=== PATIENT | male | born 1970 | race Caucasian/White ===

== ENCOUNTER 2023-05-15 05:50 | Observation (INO) | payer BC, OTHER ==
[2023-05-15] MEDS ORDERED: Zofran 4 MG/2 ML VIAL IV ONE ×2 (06:09→08:14)
[2023-05-15] MEDS ORDERED: Sodium Chloride 0.9% 1000 ML 1,000 ML IV STA ×2 (06:09→08:14)
[2023-05-15] MEDS ORDERED: MORPHINE SULFATE 4 MG INJ IV ONE (06:09)
--- NOTE | 2023-05-15 06:19 | ERPHSYRPT ---
<MART OMER - Last Filed: 05/15/23 08:06> - History of Present Illness Historian: patient Exam Limitations: no limitations Patient Subjective Stated Complaint: pt states he has been having abd pain and vomiting since tuesday, has been getting worse. Triage Nursing Assessment: pt alert and oriented, answers questions approp. pt ambulates into room with steady gait noted and splinting abd. skin warm and dry. respirations nonlabored. abd soft, pt reports diffuseabd tenderness with light palpation. bowel sounds hypo x4 quads. Hx Tetanus, Diphtheria Vaccination/Date Given: No Hx Influenza Vaccination/Date Given: No Hx Pneumococcal Vaccination/Date Given: No Immunizations Up to Date: No <SONIA JEONG - Last Filed: 05/15/23 19:42> - History of Present Illness Time Seen by Provider: 05/15/23 06:09 Physician History: 53 years old male presented in the ER with chief complaint of generalized abdominal pain with multiple episodes of nonprojectile, nonbilious vomiting without hematemesis for the last 3 days with progressive worsening. Patient reports moderate to severe intensity sharp pain, aggravated with palpation movements and oral intake. Patient reports unable to hold anything down. Denies any diarrhea or constipation. No fever or chills reported. No history of previous abdominal surgeries. (SONIA JEONG) Allergies/Adverse Reactions: No Known Drug Allergies Allergy (Verified 05/15/23 06:15) Home Medications: Multivitamin [Multi-Vitamin Daily] 1 tab PO DAILY 05/15/23 [History] Oxycodone HCl/Acetaminophen [Oxycodone-Acetaminophn 7.5-325] 1 each PO Q6H PRN PRN 05/15/23 [History] Travel Risk - International Travel Have you traveled outside of the country in past 3 weeks: No - Coronavirus Screening Are you exhibiting any of the following symptoms?: No Close contact with a COVID-19 positive Pt in past 14-21 Days: No - Vaccine Status Have you recieved a Covid-19 vaccination: No <SONIA JEONG - Last Filed: 05/15/23 19:42> - Review of Systems Constitutional: Fatigue, Weakness Eyes: No Symptoms Ears, Nose, & Throat: No Symptoms Respiratory: No Symptoms Cardiac: No Symptoms Abdominal/Gastrointestinal: Abdominal Pain, Nausea, Vomiting Genitourinary Symptoms: No Symptoms Musculoskeletal: No Symptoms Neurological: No Symptoms Psychological: No Symptoms Endocrine: No Symptoms Hematologic/Lymphatic: No Symptoms Immunological/Allergic: No Symptoms <JOYCE JEONGMIR - Last Filed: 05/15/23 19:42> - Past Medical History Pertinent Past Medical History: No Neurological History: No Pertinent History Cardiac History: No Pertinent History Respiratory History: No Pertinent History Endocrine Medical History: No Pertinent History Musculoskeletal History: Arthritis - Past Surgical History Past Surgical History: Yes Other Surgical History: knee surgery - Social History Smoking Status: Never smoker Exposure to second hand smoke: Yes Drug Use: none Patient Lives Alone: No <JEAN-PAULSONIA - Last Filed: 05/15/23 19:42> - Physical Exam General Appearance: no apparent distress, alert Eye Exam: PERRL/EOMI Ears, Nose, Throat Exam: normal ENT inspection Neck Exam: normal inspection, supple, full range of motion Respiratory Exam: normal breath sounds, lungs clear Cardiovascular Exam: regular rate/rhythm, normal heart sounds Gastrointestinal/Abdomen Exam: soft, tenderness (Generalized tenderness with mild guarding without rebound tenderness), No normal bowel sounds (Hypoactive) Extremity Exam: normal inspection, normal range of motion Neurologic Exam: alert, oriented x 3, cooperative, conservation educator II-XII nml as tested Skin Exam: normal color SpO2 Interpretation: normal SpO2: 100 O2 Delivery: Room Air <JEAN-PAULSONIA - Last Filed: 05/15/23 19:42> - Nursing Vital Signs Nursing Vital Signs: Initial Vital Signs Temperature 98.3 F 05/15/23 06:02 Pulse Rate 52 L 05/15/23 06:02 Respiratory Rate 18 05/15/23 06:02 Blood Pressure 130/74 05/15/23 06:02 O2 Sat by Pulse Oximetry 100 05/15/23 06:02 Pain Scale Pain Intensity 9 - Course Nursing assessment & vital signs reviewed: Yes - CT Exams Abdomen/Pelvis CT Interpretation: Tele-radiologist Report, Other (Reviewed by me) <MART OMER - Last Filed: 05/15/23 08:06> Ordered Tests: Active Orders 24 hr Category Date Time Status IV Insertion STAT Care 05/15/23 06:09 Completed NPO (ED) STAT Care 05/15/23 06:09 Completed NPO Diet 05/15/23 08:15 Active ABDOMEN AND PELVIS W CONTRAST [CT] Stat Exams 05/15/23 06:15 Completed CBC W DIFF Stat Lab 05/15/23 06:30 Results CMP Stat Lab 05/15/23 06:30 Completed CULTURE,URINE Stat Lab 05/15/23 08:17 Received LIPASE Stat Lab 05/15/23 06:30 Completed LIPID PROFILE Stat Lab 05/15/23 06:16 Completed Lactic Acid Stat Lab 05/15/23 06:30 Completed MAG [MAGNESIUM] Stat Lab 05/15/23 06:30 Completed Manual Differential NC Stat Lab 05/15/23 06:30 Results Pathologist Review Stat Lab 05/15/23 06:30 Results UA W/RFX UR CULTURE Stat Lab 05/15/23 08:17 Completed Transfer Order Routine Transfer 05/15/23 Completed Medication Summary Generic Name Dose Route Start Last Admin Trade Name Freq PRN Reason Stop Dose Admin Hydromorphone/Sodium Chloride 30 mg 05/15/23 16:05 05/15/23 16:23 Hydromorphone/Nacl/Pf 30 Mg/30 Ml Cast Shell Grinder.Syring IV 06/14/23 16:04 30 mg .STANDARD PIPELINE DISPATCHER DOSING PRN Administration PAIN Lactated Ringer's 1,000 mls @ 125 mls/hr 05/15/23 09:00 05/15/23 17:01 Lactated Ringers IV 06/14/23 08:59 125 mls/hr .Q8H JAXON Administration Ondansetron HCl 4 mg 05/15/23 09:58 05/15/23 14:15 Ondansetron Hcl 4 Mg/2 Ml Vial IV 06/14/23 09:57 4 mg Q6H PRN PRN Administration NAUSEA/VOMITING Pantoprazole Sodium 40 mg 05/15/23 10:00 05/15/23 10:29 Pantoprazole 40 Mg Vial IV 06/14/23 09:59 40 mg Q24H10 JAXON Administration Discontinued Medications Generic Name Dose Route Start Last Admin Trade Name Freq PRN Reason Stop Dose Admin Hydromorphone HCl Confirm 05/15/23 08:20 Hydromorphone 1 Mg/1ml Inj Administered 05/15/23 08:21 Dose 1 mg .ROUTE .STK-MED ONE Hydromorphone HCl 1 mg 05/15/23 08:23 05/15/23 08:25 Hydromorphone 1 Mg/1ml Inj IV 05/15/23 08:24 1 mg STAT ONE Administration Hydromorphone HCl 1 mg 05/15/23 08:38 Hydromorphone 1 Mg/1ml Inj IV 05/20/23 08:37 Q4H PRN PRN PAIN Hydromorphone HCl 1 mg 05/15/23 09:57 05/15/23 12:28 Hydromorphone 1 Mg/1ml Inj IV 05/20/23 09:56 1 mg Q4H PRN PRN Administration PAIN Sodium Chloride 1,000 mls @ 999 mls/hr 05/15/23 06:09 05/15/23 07:55 Sodium Chloride 0.9% 1000 Ml IV 05/15/23 07:09 Infused .Q1H1M STA Infusion Sodium Chloride Confirm 05/15/23 06:23 Sodium Chloride 0.9% 1000 Ml Administered 05/15/23 06:24 Dose 1,000 mls @ ud .ROUTE .STK-MED ONE Sodium Chloride Confirm 05/15/23 07:57 Sodium Chloride 0.9% 1000 Ml Administered 05/15/23 07:58 Dose 1,000 mls @ ud .ROUTE .STK-MED ONE Sodium Chloride 1,000 mls @ 999 mls/hr 05/15/23 08:14 05/15/23 08:15 Sodium Chloride 0.9% 1000 Ml IV 05/15/23 09:14 999 mls/hr .Q1H1M STA Administration Lactated Ringer's 1,000 mls @ 125 mls/hr 05/15/23 09:00 Lactated Ringers IV 06/14/23 08:59 .Q8H JAXON Morphine Sulfate 4 mg 05/15/23 06:09 05/15/23 06:26 Morphine Sulfate 4 Mg/Ml Injection IV 05/15/23 06:10 4 mg STAT ONE Administration Morphine Sulfate Confirm 05/15/23 06:23 Morphine Sulfate 4 Mg/Ml Injection Administered 05/15/23 06:24 Dose 4 mg .ROUTE .STK-MED ONE Ondansetron HCl 4 mg 05/15/23 06:09 05/15/23 06:27 Ondansetron Hcl 4 Mg/2 Ml Vial IV 05/15/23 06:10 4 mg STAT ONE Administration Ondansetron HCl Confirm 05/15/23 06:22 Ondansetron Hcl 4 Mg/2 Ml Vial Administered 05/15/23 06:23 Dose 4 mg .ROUTE .STK-MED ONE Ondansetron HCl Confirm 05/15/23 08:03 Ondansetron Hcl 4 Mg/2 Ml Vial Administered 05/15/23 08:04 Dose 4 mg .ROUTE .STK-MED ONE Ondansetron HCl 4 mg 05/15/23 08:14 05/15/23 08:15 Ondansetron Hcl 4 Mg/2 Ml Vial IV 05/15/23 08:15 4 mg STAT ONE Administration Pantoprazole Sodium 40 mg 05/15/23 08:45 05/15/23 08:57 Pantoprazole 40 Mg Vial IV 06/14/23 08:44 Not Given Q24H [facility] Lab/Rad Data: Laboratory Result Diagrams 05/15/23 06:30 05/15/23 06:30 Laboratory Results 05/15/23 05/15/23 05/15/23 Range/Units 08:17 06:30 06:30 WBC (4.0-10.5) x10^3/uL RBC (4.1-5.6) x10^6/uL Hgb (12.5-18.0) g/dL Hct (42-50) % MCV (78-100) fL MCH (26-32) pg MCHC (32-36) g/dL RDW (11.5-14.0) % Plt Count (150-450) x10^3/uL MPV (7.5-11.0) fL Segmented Neutrophils (36.-66.) % Band Neutrophils (0.0-2.0) % Lymphocytes (Manual) (24-44) % Monocytes (Manual) (0.0-12.0) % Toxic Granulation Platelet Estimate (NORMAL) RBC Morphology Smear Path Review Sodium (137-145) mmol/L Potassium (3.5-5.1) mmol/L Chloride (98-107) mmol/L Carbon Dioxide (22-30) mmol/L Anion Gap (5-15) MEQ/L BUN (9-20) mg/dL Creatinine (0.66-1.25) mg/dL Estimated GFR ML/MIN Glucose (74-106) mg/dL Hemoglobin A1c (4.5-6.0) % Lactic Acid 1.9 (0.4-2.0) Calcium (8.4-10.2) mg/dL Magnesium 2.0 (1.6-2.3) mg/dL Total Bilirubin (0.2-1.3) mg/dL AST (17-59) U/L ALT (0-50) U/L Alkaline Phosphatase (38-126) U/L Serum Total Protein (6.3-8.2) g/dL Albumin (3.5-5.0) g/dL Triglycerides (30-150) mg/dL Cholesterol (50-200) mg/dL LDL Cholesterol (30-100) mg/dL HDL Cholesterol (40-60) mg/dL Heart Disease Risk Ratio Lipase (23-300) U/L Urine Color Yellow (Yellow) Urine Appearance Clear (Clear) Urine pH 6.5 (4.6-8.0) Ur Specific Hinckley >=1.030 A (1.005-1.030) Urine Protein 30 (Negative) Urine Glucose (UA) Negative (Negative) mg/dL Urine Ketones 15 A (Negative) Urine Blood Large A (Negative) Urine Nitrite Negative (Negative) Urine Bilirubin Negative (Negative) Urine Urobilinogen 1.0 A (0.2) mg/dL Ur Leukocyte Esterase Negative (Negative) U Hyaline Cast (Auto) NONE SEEN (0-2) /LPF Urine Microscopic RBC 51-100 A (0-5) /HPF Urine Microscopic WBC 0-2 (0-5) /HPF Ur Epithelial Cells None Seen (None Seen) /HPF Urine Bacteria None Seen (None Seen) /HPF Urine Culture Reflexed YES (NO) 05/15/23 05/15/23 05/15/23 Range/Units 06:30 06:30 06:16 WBC 26.0 H* (4.0-10.5) x10^3/uL RBC 4.49 (4.1-5.6) x10^6/uL Hgb 14.6 (12.5-18.0) g/dL Hct 40.8 L (42-50) % MCV 90.9 (78-100) fL MCH 32.5 H (26-32) pg MCHC 35.8 (32-36) g/dL RDW 13.1 (11.5-14.0) % Plt Count 291 (150-450) x10^3/uL MPV 9.8 (7.5-11.0) fL Segmented Neutrophils 89 H (36.-66.) % Band Neutrophils 2 (0.0-2.0) % Lymphocytes (Manual) 7 L (24-44) % Monocytes (Manual) 2 (0.0-12.0) % Toxic Granulation 2+ Platelet Estimate NORMAL (NORMAL) RBC Morphology NORMAL Smear Path Review Pending Sodium 135 L (137-145) mmol/L Potassium 4.3 (3.5-5.1) mmol/L Chloride 99 (98-107) mmol/L Carbon Dioxide 26 (22-30) mmol/L Anion Gap 14.7 (5-15) MEQ/L BUN 22 H (9-20) mg/dL Creatinine 0.78 (0.66-1.25) mg/dL Estimated GFR > 60.0 ML/MIN Glucose 132 H (74-106) mg/dL Hemoglobin A1c 5.25 (4.5-6.0) % Lactic Acid (0.4-2.0) Calcium 9.7 (8.4-10.2) mg/dL Magnesium (1.6-2.3) mg/dL Total Bilirubin 1.00 (0.2-1.3) mg/dL AST 26 (17-59) U/L ALT 25 (0-50) U/L Alkaline Phosphatase 153 H (38-126) U/L Serum Total Protein 7.5 (6.3-8.2) g/dL Albumin 4.5 (3.5-5.0) g/dL Triglycerides (30-150) mg/dL Cholesterol (50-200) mg/dL LDL Cholesterol (30-100) mg/dL HDL Cholesterol (40-60) mg/dL Heart Disease Risk Ratio Lipase 534 H (23-300) U/L Urine Color (Yellow) Urine Appearance (Clear) Urine pH (4.6-8.0) Ur Specific Hinckley (1.005-1.030) Urine Protein (Negative) Urine Glucose (UA) (Negative) mg/dL Urine Ketones (Negative) Urine Blood (Negative) Urine Nitrite (Negative) Urine Bilirubin (Negative) Urine Urobilinogen (0.2) mg/dL Ur Leukocyte Esterase (Negative) U Hyaline Cast (Auto) (0-2) /LPF Urine Microscopic RBC (0-5) /HPF Urine Microscopic WBC (0-5) /HPF Ur Epithelial Cells (None Seen) /HPF Urine Bacteria (None Seen) /HPF Urine Culture Reflexed (NO) 05/15/23 Range/Units 06:16 WBC (4.0-10.5) x10^3/uL RBC (4.1-5.6) x10^6/uL Hgb (12.5-18.0) g/dL Hct (42-50) % MCV (78-100) fL MCH (26-32) pg MCHC (32-36) g/dL RDW (11.5-14.0) % Plt Count (150-450) x10^3/uL MPV (7.5-11.0) fL Segmented Neutrophils (36.-66.) % Band Neutrophils (0.0-2.0) % Lymphocytes (Manual) (24-44) % Monocytes (Manual) (0.0-12.0) % Toxic Granulation Platelet Estimate (NORMAL) RBC Morphology Smear Path Review Sodium (137-145) mmol/L Potassium (3.5-5.1) mmol/L Chloride (98-107) mmol/L Carbon Dioxide (22-30) mmol/L Anion Gap (5-15) MEQ/L BUN (9-20) mg/dL Creatinine (0.66-1.25) mg/dL Estimated GFR ML/MIN Glucose (74-106) mg/dL Hemoglobin A1c (4.5-6.0) % Lactic Acid (0.4-2.0) Calcium (8.4-10.2) mg/dL Magnesium (1.6-2.3) mg/dL Total Bilirubin (0.2-1.3) mg/dL AST (17-59) U/L ALT (0-50) U/L Alkaline Phosphatase (38-126) U/L Serum Total Protein (6.3-8.2) g/dL Albumin (3.5-5.0) g/dL Triglycerides 86 (30-150) mg/dL Cholesterol 210 H (50-200) mg/dL LDL Cholesterol 146 H (30-100) mg/dL HDL Cholesterol 44 (40-60) mg/dL Heart Disease Risk Ratio 4.8 Lipase (23-300) U/L Urine Color (Yellow) Urine Appearance (Clear) Urine pH (4.6-8.0) Ur Specific Hinckley (1.005-1.030) Urine Protein (Negative) Urine Glucose (UA) (Negative) mg/dL Urine Ketones (Negative) Urine Blood (Negative) Urine Nitrite (Negative) Urine Bilirubin (Negative) Urine Urobilinogen (0.2) mg/dL Ur Leukocyte Esterase (Negative) U Hyaline Cast (Auto) (0-2) /LPF Urine Microscopic RBC (0-5) /HPF Urine Microscopic WBC (0-5) /HPF Ur Epithelial Cells (None Seen) /HPF Urine Bacteria (None Seen) /HPF Urine Culture Reflexed (NO) - Progress Progress: unchanged Discussed with Dr.: Other (Dr Holder) Will see patient in: hospital (observation) <MART OMER - Last Filed: 05/15/23 08:06> - Progress Counseled pt/family regarding: diagnosis <SONIA JEONG - Last Filed: 05/15/23 19:42> - Progress Progress Note: 05/15/23 06:37 53 years old male presented in the ER with chief complaint of generalized abdominal pain with multiple episodes of nonprojectile, nonbilious vomiting without hematemesis for the last 3 days with progressive worsening. Patient reports moderate to severe intensity sharp pain, aggravated with palpation movements and oral intake. Patient reports unable to hold anything down. Denies any diarrhea or constipation. No fever or chills reported. No history of previous abdominal surgeries. On exam patient has generalized abdominal tenderness with mild guarding without rebound tenderness. Hypoactive bowel sounds. He is made n.p.o., fluids and will do acute abdomen work-up including CT abdomen pelvis with contrast. Work-up is pending, care is transferred to Dr. Omer at shift change for reevaluation and final disposition. (SONIA JEONG) Medical Desision Making - Discussion of managment Care discussed with:: hospitalist (Dr Holder) Reviewed:: Test results, Need for additional workup Agreed on:: Treatment plan, decision to admit Will see patient: in hospital - Diagnostic Testing Diagnostic test were ordered, analyzed, and reviewed by me: Yes Radiological Interpretation: Reviewed by me - Risk of complications The pt has a mod risk of morbidity or mortality based on: Need for prescription drug management (Patient will also receive an NG tube) <MART OMER - Last Filed: 05/15/23 08:06> - Departure Departure Disposition: Observation Critical Care Time: No <MART OMER - Last Filed: 05/15/23 08:06> <SONIA JEONG - Last Filed: 05/15/23 19:42> - Departure Clinical Impression: Pancreatitis Condition: Stable
[2023-05-15] MEDS ORDERED: Zofran 4 MG/2 ML VIAL ONE ×2 (06:22→08:03)
[2023-05-15] MEDS ORDERED: Sodium Chloride 0.9% 1000 ML 1,000 ML ONE ×2 (06:23→07:57)
[2023-05-15] MEDS ORDERED: MORPHINE SULFATE 4 MG INJ ONE (06:23)
[2023-05-15 06:52] LABS: ALBUMIN 4.5 g/dL (3.5-5.0); ALKALINE PHOSPHATASE 153 U/L (38-126); ANION GAP 14.7 MEQ/L (5-15); BLOOD UREA NITROGEN 22 mg/dL (9-20); CHLORIDE 99 mmol/L (98-107); Calcium 9.7 mg/dL (8.4-10.2); Carbon Dioxide 26 mmol/L (22-30); Creatinine 1 0.78 mg/dL (0.66-1.25); EST GLOMERULAR FILTRATION RATE > 60.0 ML/MIN; Glucose 132 mg/dL (74-106); LIPASE 534 U/L (23-300); Potassium 4.3 mmol/L (3.5-5.1); SGOT/AST 26 U/L (17-59); SGPT/ALT 25 U/L (0-50); SODIUM 135 mmol/L (137-145); Total Protein 7.5 g/dL (6.3-8.2)
[2023-05-15 06:53] LABS: Hematocrit 40.8 % (42-50); Hemoglobin 14.6 g/dL (12.5-18.0); Mean Cell Volume 90.9 fL (78-100); Mean Corpuscular Hemoglobin 32.5 pg (26-32); Mean Corpuscular Hgb Concent. 35.8 g/dL (32-36); Mean Platelet Volume 9.8 fL (7.5-11.0); Platelet Count 291 x10^3/uL (150-450); Red Blood Count 4.49 x10^6/uL (4.1-5.6); Red Cell Distribution Width 13.1 % (11.5-14.0)
[2023-05-15 07:17] LABS: BAND 2 % (0.0-2.0); Lymphocytes 7 % (24-44); Monocyte 2 % (0.0-12.0); Neutrophils 89 % (36.-66.); Platelet Estimate NORMAL (NORMAL); Total Cells Counted 100; Toxic Granulation 2+
--- NOTE | 2023-05-15 07:38 | XRAY ---
CLINICAL HISTORY:gen abd pain/vomiting COMPARISON:None. TECHNIQUE:CT scanning of the abdomen and pelvis was obtained after IV contrast administration. Coronal and sagittal reconstructions were also obtained. FINDINGS: The visualized liver is average in size showing regular outlines with no obvious focal mass lesion or dilated biliary radicle. The spleen is not enlarged, shows multiple tiny calcific foci with no obvious areas of abnormal osf tissue attenuation or perisplenic collection. Fat accumulation in the pancreatic parenchyma is seen, mainly involving the pancreatic head , sparing the uncinate process The opacified stomach and duodenal loop are regularly opacified with no obvious gross ulcerative changes, spasticity or mass lesion. The small and large bowel loops appear intact with no obvious abnormal mural thickening, stenotic segment, diverticular changes or mass lesion. There is no obvious peritoneal adhesive changes or nodulations. The retroperitoneal structures including the kidneys, adrenal glands, and great vessels are within normal limits. Few para aortic lymph nodes are seen showing preserved ovoid shape , largest one measures approximately 12x6mm along maximum and smallest calibers. No obvious ascitic collection. The examined pelvis revealed regular filling of the urinary bladder with no obvious mural thickening or diverticular changes. The visualized prostate, rectum, and sigmoid colon appear intact. (apart from a few prostatic concretions) The lower chest cuts revealed bilateral basal atelectatic bands Lumbar spondylodegenerative changes are incidentally seen IMPRESSION: 1. Uneven pancreatic lipomatosis/ fatty infiltration. 2. Multiple tiny splenic calcific foci, mostly old granulomas 3. Other findings as described. Electronically Signed by: Edward Grace MD. (05/15/2023 06:36:17 COTTRELL OPERATOR)
[2023-05-15] MEDS ORDERED: Hydromorphone 1 mg/ml Injection ONE (08:20)
[2023-05-15] MEDS ORDERED: Hydromorphone 1 mg/ml Injection IV ONE (08:23)
[2023-05-15] MEDS ORDERED: Hydromorphone 1 mg/ml Injection IV PRN ×2 (08:38→09:57)
[2023-05-15 08:44] LABS: Appearance Clear (Clear); Bacteria None Seen /HPF (None Seen); Bilirubin Negative (Negative); Blood Large (Negative); Epithelial Cells None Seen /HPF (None Seen); Glucose, Urine Negative (Negative); Hyaline Casts NONE SEEN /LPF (0-2); Ketones 15 (Negative); Leukocyte Esterase Negative (Negative); Nitrite Negative (Negative); Ph 6.5 (4.6-8.0); Protein,Urine Dip 30 (Negative); RBC 51-100 /HPF (0-5); Specific Gravity >=1.030 (1.005-1.030); WBC 0-2 /HPF (0-5)
[2023-05-15] MEDS ORDERED: PROTONIX 40 MG IV IV SCH (08:45)
[2023-05-15] MEDS ORDERED: Lactated Ringers 1,000 ML IV SCH (09:00)
[2023-05-15 09:02] LABS: ADD URINE CULTURE? YES (NO)
[2023-05-15 09:16] LABS: Risk Ratio 4.8
[2023-05-15] MEDS: Lactated Ringers 1,000 ML IV SCH ×2 (09:19→17:01)
[2023-05-15] MEDS: PROTONIX 40 MG IV IV SCH (10:29)
--- NOTE | 2023-05-15 11:18 | XRAY ---
CLINICAL HISTORY:elevated White count COMPARISON:None. TECHNIQUE:X-ray of the chest showing 2 views: PA, and lateral views. FINDINGS: Both lungs are clear. No evidence of definite consolidation seen in either lung field. Normal configuration of the mediastinum. The bhupendra are normal in size and position. The cardiac size is normal. Costophrenic and cardiophrenic angles are clear. Retrocardiac and retrosternal spaces are normal. Bony thorax is unremarkable. IMPRESSION: Unremarkable chest radiograph. Electronically Signed by: Edward Grace MD. (05/15/2023 10:17:57 AFFILIATE MARKETING COORDINATOR)
--- NOTE | 2023-05-15 12:29 | PCM.HP ---
History of Present Illness - Chief Complaint Chief Complaint: Pancreatitis Date: 05/15/23 History of Present Illness: is a 53 year old male with PMHX of chronic pain r/t OA. He presented in the ER with chief complaint of generalized abdominal pain, right lower back pain, with multiple episodes of vomiting without hematemesis for the last 3 days with progressive worsening. Patient reports moderate to severe intensity sharp pain, aggravated with palpation, sitting or laying, and oral intake. Moving helps his pain. Patient reports unable to hold anything down. He also has pain with urination no visible blood in urine. Denies any diarrhea or constipation. No fever or chills reported. No history of previous abdominal surgeries. explained he has been to multiple emergency rooms with the same pain and has never been admitted. He does not drink alcohol and his last drink was [address] abd pelvis showed 1. Uneven pancreatic lipomatosis/ fatty infiltration. 2. Multiple tiny splenic calcific foci, mostly old granulomas. Lipase is 534. Pt made NPO and IV fluids started. Ordered US to be done tomorrow since it is not available to be done today. He denies CP, SOB. - Review of Systems Constitutional: No Fever, No Chills Eyes: No Symptoms Ears, Nose, & Throat: No Symptoms Respiratory: No Cough, No Short Of Breath Cardiac: No Chest Pain, No Edema, No Syncope Abdominal/Gastrointestinal: Abdominal Pain, Nausea, Vomiting, No Diarrhea Genitourinary Symptoms: Dysuria Musculoskeletal: Back Pain (R lower lumbar region), No Neck Pain Skin: No Rash Neurological: No Dizziness, No Focal Weakness, No Sensory Changes Psychological: No Symptoms Endocrine: No Symptoms Hematologic/Lymphatic: No Symptoms Immunological/Allergic: No Symptoms Medications & Allergies Home Medications: Home Medication List Multivitamin [Multi-Vitamin Daily] 1 tab PO DAILY 05/15/23 [History Confirmed 05/15/23] Oxycodone HCl/Acetaminophen [Oxycodone-Acetaminophn 7.5-325] 1 each PO Q6H PRN PRN 05/15/23 [History Confirmed 05/15/23] Allergies/Adverse Reactions: Allergies Allergy/AdvReac Type Severity Reaction Status Date / Time No Known Drug Allergies Allergy Verified 05/15/23 06:15 - Past Medical History Past Medical History: No Neurological History: No Pertinent History ENT History: No Pertinent History Cardiac History: No Pertinent History Respiratory History: No Pertinent History Endocrine Medical History: No Pertinent History Musculoskelatal History: Arthritis GI Medical History: No Pertinent History History: Other Pyscho-Social History: No Pertinent History Male Reproductive Disorders: No Pertinent History Comment: KIDNEY STONES - Past Surgical History Past Surgical History: Yes Other Surgical History: KNEE SURGERY - Social History Smoking Status: Never smoker Exposure to second hand smoke: Yes Alcohol: None Drug Use: none - Physical Exam Vital Signs: Vital Signs - 24 hr Temp Pulse Resp BP BP Pulse Ox 05/15/23 11:44 98.7 F 61 18 141/69 97 05/15/23 08:58 98.0 F 56 L 18 125/65 99 05/15/23 08:50 98.0 F 56 L 18 125/65 99 05/15/23 08:06 124/62 100 05/15/23 06:18 100 05/15/23 06:02 98.3 F 51 L 20 130/74 130/74 94 L General Appearance: moderate distress, alert Neurologic Exam: alert, oriented x 3, cooperative, normal mood/affect, nml cerebellar function, nml station & gait, sensation nml, No motor deficits Eye Exam: PERRL/EOMI, eyes nml inspection Ears, Nose, Throat Exam: normal ENT inspection, TMs normal, pharynx normal, moist mucous membranes Neck Exam: normal inspection, non-tender, supple, full range of motion Respiratory Exam: normal breath sounds, lungs clear, No respiratory distress Cardiovascular Exam: regular rate/rhythm, normal heart sounds, normal peripheral pulses Gastrointestinal/Abdomen Exam: soft, normal bowel sounds, tenderness (LUQ, RLQ, LLQ with palpation), No mass Back Exam: normal inspection, normal range of motion, point tenderness (Right lower lumbar region), No CVA tenderness, No vertebral tenderness Extremity Exam: normal inspection, normal range of motion, pelvis stable Skin Exam: normal color, warm, dry, No rash Lymphatic Exam: No adenopathy Results - Labs Lab/Micro Results: Lab Results-Last 24 Hours 05/15/23 05/15/23 05/15/23 Range/Units 06:16 06:16 06:30 WBC 26.0 H* (4.0-10.5) x10^3/uL RBC 4.49 (4.1-5.6) x10^6/uL Hgb 14.6 (12.5-18.0) g/dL Hct 40.8 L (42-50) % MCV 90.9 (78-100) fL MCH 32.5 H (26-32) pg MCHC 35.8 (32-36) g/dL RDW 13.1 (11.5-14.0) % Plt Count 291 (150-450) x10^3/uL MPV 9.8 (7.5-11.0) fL Segmented Neutrophils 89 H (36.-66.) % Band Neutrophils 2 (0.0-2.0) % Lymphocytes (Manual) 7 L (24-44) % Monocytes (Manual) 2 (0.0-12.0) % Toxic Granulation 2+ Platelet Estimate NORMAL (NORMAL) RBC Morphology NORMAL Smear Path Review Pending Sodium (137-145) mmol/L Potassium (3.5-5.1) mmol/L Chloride (98-107) mmol/L Carbon Dioxide (22-30) mmol/L Anion Gap (5-15) MEQ/L BUN (9-20) mg/dL Creatinine (0.66-1.25) mg/dL Estimated GFR ML/MIN Glucose (74-106) mg/dL POC Glucometer (74 to 106) mg/dL Hemoglobin A1c 5.25 (4.5-6.0) % Lactic Acid (0.4-2.0) Calcium (8.4-10.2) mg/dL Magnesium (1.6-2.3) mg/dL Total Bilirubin (0.2-1.3) mg/dL AST (17-59) U/L ALT (0-50) U/L Alkaline Phosphatase (38-126) U/L Serum Total Protein (6.3-8.2) g/dL Albumin (3.5-5.0) g/dL Triglycerides 86 (30-150) mg/dL Cholesterol 210 H (50-200) mg/dL LDL Cholesterol 146 H (30-100) mg/dL HDL Cholesterol 44 (40-60) mg/dL Heart Disease Risk Ratio 4.8 Lipase (23-300) U/L Procalcitonin (0.030-0.080) ng/mL Urine Color (Yellow) Urine Appearance (Clear) Urine pH (4.6-8.0) Ur Specific Leburn (1.005-1.030) Urine Protein (Negative) Urine Glucose (UA) (Negative) mg/dL Urine Ketones (Negative) Urine Blood (Negative) Urine Nitrite (Negative) Urine Bilirubin (Negative) Urine Urobilinogen (0.2) mg/dL Ur Leukocyte Esterase (Negative) U Hyaline Cast (Auto) (0-2) /LPF Urine Microscopic RBC (0-5) /HPF Urine Microscopic WBC (0-5) /HPF Ur Epithelial Cells (None Seen) /HPF Urine Bacteria (None Seen) /HPF Urine Culture Reflexed (NO) 05/15/23 05/15/23 05/15/23 Range/Units 06:30 06:30 06:30 WBC (4.0-10.5) x10^3/uL RBC (4.1-5.6) x10^6/uL Hgb (12.5-18.0) g/dL Hct (42-50) % MCV (78-100) fL MCH (26-32) pg MCHC (32-36) g/dL RDW (11.5-14.0) % Plt Count (150-450) x10^3/uL MPV (7.5-11.0) fL Segmented Neutrophils (36.-66.) % Band Neutrophils (0.0-2.0) % Lymphocytes (Manual) (24-44) % Monocytes (Manual) (0.0-12.0) % Toxic Granulation Platelet Estimate (NORMAL) RBC Morphology Smear Path Review Sodium 135 L (137-145) mmol/L Potassium 4.3 (3.5-5.1) mmol/L Chloride 99 (98-107) mmol/L Carbon Dioxide 26 (22-30) mmol/L Anion Gap 14.7 (5-15) MEQ/L BUN 22 H (9-20) mg/dL Creatinine 0.78 (0.66-1.25) mg/dL Estimated GFR > 60.0 ML/MIN Glucose 132 H (74-106) mg/dL POC Glucometer (74 to 106) mg/dL Hemoglobin A1c (4.5-6.0) % Lactic Acid 1.9 (0.4-2.0) Calcium 9.7 (8.4-10.2) mg/dL Magnesium 2.0 (1.6-2.3) mg/dL Total Bilirubin 1.00 (0.2-1.3) mg/dL AST 26 (17-59) U/L ALT 25 (0-50) U/L Alkaline Phosphatase 153 H (38-126) U/L Serum Total Protein 7.5 (6.3-8.2) g/dL Albumin 4.5 (3.5-5.0) g/dL Triglycerides (30-150) mg/dL Cholesterol (50-200) mg/dL LDL Cholesterol (30-100) mg/dL HDL Cholesterol (40-60) mg/dL Heart Disease Risk Ratio Lipase 534 H (23-300) U/L Procalcitonin (0.030-0.080) ng/mL Urine Color (Yellow) Urine Appearance (Clear) Urine pH (4.6-8.0) Ur Specific Leburn (1.005-1.030) Urine Protein (Negative) Urine Glucose (UA) (Negative) mg/dL Urine Ketones (Negative) Urine Blood (Negative) Urine Nitrite (Negative) Urine Bilirubin (Negative) Urine Urobilinogen (0.2) mg/dL Ur Leukocyte Esterase (Negative) U Hyaline Cast (Auto) (0-2) /LPF Urine Microscopic RBC (0-5) /HPF Urine Microscopic WBC (0-5) /HPF Ur Epithelial Cells (None Seen) /HPF Urine Bacteria (None Seen) /HPF Urine Culture Reflexed (NO) 05/15/23 05/15/23 05/15/23 Range/Units 08:17 10:10 11:33 WBC (4.0-10.5) x10^3/uL RBC (4.1-5.6) x10^6/uL Hgb (12.5-18.0) g/dL Hct (42-50) % MCV (78-100) fL MCH (26-32) pg MCHC (32-36) g/dL RDW (11.5-14.0) % Plt Count (150-450) x10^3/uL MPV (7.5-11.0) fL Segmented Neutrophils (36.-66.) % Band Neutrophils (0.0-2.0) % Lymphocytes (Manual) (24-44) % Monocytes (Manual) (0.0-12.0) % Toxic Granulation Platelet Estimate (NORMAL) RBC Morphology Smear Path Review Sodium (137-145) mmol/L Potassium (3.5-5.1) mmol/L Chloride (98-107) mmol/L Carbon Dioxide (22-30) mmol/L Anion Gap (5-15) MEQ/L BUN (9-20) mg/dL Creatinine (0.66-1.25) mg/dL Estimated GFR ML/MIN Glucose (74-106) mg/dL POC Glucometer 124 H (74 to 106) mg/dL Hemoglobin A1c (4.5-6.0) % Lactic Acid (0.4-2.0) Calcium (8.4-10.2) mg/dL Magnesium (1.6-2.3) mg/dL Total Bilirubin (0.2-1.3) mg/dL AST (17-59) U/L ALT (0-50) U/L Alkaline Phosphatase (38-126) U/L Serum Total Protein (6.3-8.2) g/dL Albumin (3.5-5.0) g/dL Triglycerides (30-150) mg/dL Cholesterol (50-200) mg/dL LDL Cholesterol (30-100) mg/dL HDL Cholesterol (40-60) mg/dL Heart Disease Risk Ratio Lipase (23-300) U/L Procalcitonin 0.085 H (0.030-0.080) ng/mL Urine Color Yellow (Yellow) Urine Appearance Clear (Clear) Urine pH 6.5 (4.6-8.0) Ur Specific Leburn >=1.030 A (1.005-1.030) Urine Protein 30 (Negative) Urine Glucose (UA) Negative (Negative) mg/dL Urine Ketones 15 A (Negative) Urine Blood Large A (Negative) Urine Nitrite Negative (Negative) Urine Bilirubin Negative (Negative) Urine Urobilinogen 1.0 A (0.2) mg/dL Ur Leukocyte Esterase Negative (Negative) U Hyaline Cast (Auto) NONE SEEN (0-2) /LPF Urine Microscopic RBC 51-100 A (0-5) /HPF Urine Microscopic WBC 0-2 (0-5) /HPF Ur Epithelial Cells None Seen (None Seen) /HPF Urine Bacteria None Seen (None Seen) /HPF Urine Culture Reflexed YES (NO) Accuchecks Date 05/15/23 Time 11:44 - Radiology Impressions Radiology Exams & Impressions: Radiology Procedures Category Date Time Status ABDOMEN AND PELVIS W CONTRAST [CT] Stat Exams 05/15/23 06:15 Completed ABDOMINAL-LIMITED [US] Routine Exams 05/16/23 09:58 Ordered CHEST 2 VIEWS (PA AND LAT) Routine Exams 05/15/23 10:27 Completed Assessment/Plan (1) Pancreatitis Current Visit: Yes Status: Acute Assessment & Plan: - Lipase 534- trend - N/V- Zofran PRN - Pantoprazole - Dilaudid for pain - Lipid panel - IV fluid bolus gave in ER - LR @ 125 - NPO except ice chips - US in AM - BC X2 - CT abd/ pelvis 05/15: 1. Uneven pancreatic lipomatosis/ fatty infiltration. 2. Multiple tiny splenic calcific foci, mostly old granulomas 3. Other findings as described. - Consider MRI Code(s): K85.90 - ACUTE PANCREATITIS WITHOUT NECROSIS OR INFECTION, UNSP (2) Osteoarthritis Current Visit: Yes Status: Acute Assessment & Plan: - Stop oral pain medication d/t NPO - Dilaudid PRN Code(s): M19.90 - UNSPECIFIED OSTEOARTHRITIS, UNSPECIFIED SITE (3) Chronic pain Current Visit: Yes Status: Acute Assessment & Plan: - Stop oral pain medication d/t NPO - Dilaudid PRN Code(s): G89.29 - OTHER CHRONIC PAIN (4) Lumbar back pain Current Visit: Yes Status: Acute Assessment & Plan: - New onset -Consider MRI - Dilaudid for pain - may be r/t abd. pain Code(s): M54.50 - LOW BACK PAIN, UNSPECIFIED (5) Hematuria Current Visit: Yes Status: Acute Assessment & Plan: - seen on UA - UC pending Code(s): R31.9 - HEMATURIA, UNSPECIFIED (6) Leukocytosis Current Visit: Yes Status: Acute Assessment & Plan: - R/T N/V? - WBC 26.0 - Chest XR negative - Procal 0.085 - LA WNL Code(s): D72.829 - ELEVATED WHITE BLOOD CELL COUNT, UNSPECIFIED (7) Hyperlipidemia Current Visit: Yes Status: Acute Assessment & Plan: - advised diet and exercise control Code(s): E78.5 - HYPERLIPIDEMIA, UNSPECIFIED (8) Obesity (BMI 30.0-34.9) Current Visit: Yes Status: Acute Assessment & Plan: - advised diet and exercise control VTE: SCD's PPI: Pantoprazole Next of kin: D/C plan: 1-2 days Code(s): E66.9 - OBESITY, UNSPECIFIED
[2023-05-15] MEDS: Zofran 4 MG/2 ML VIAL IV PRN ×2 (14:15→20:14)
[2023-05-15] MEDS ORDERED: HYDROMORPHONE 30 MG/30 ML-NS PCA IV PRN (16:05)
[2023-05-16] MEDS: Lactated Ringers 1,000 ML IV SCH ×2 (00:20→08:17)
[2023-05-16] MEDS: Zofran 4 MG/2 ML VIAL IV PRN ×2 (03:24→16:29)
[2023-05-16] MEDS ORDERED: Tums EX 750 MG PO PRN (03:33)
[2023-05-16] MEDS: TYLENOL 325 MG PO PRN ×2 (03:37→09:49)
[2023-05-16 04:41] LABS: Hematocrit 35.7 % (42-50); Hemoglobin 12.4 g/dL (12.5-18.0); Mean Cell Volume 92.7 fL (78-100); Mean Corpuscular Hemoglobin 32.2 pg (26-32); Mean Corpuscular Hgb Concent. 34.7 g/dL (32-36); Mean Platelet Volume 9.7 fL (7.5-11.0); Platelet Count 224 x10^3/uL (150-450); Red Blood Count 3.85 x10^6/uL (4.1-5.6); Red Cell Distribution Width 13.2 % (11.5-14.0); White Blood Count 22.9 x10^3/uL (4.0-10.5)
[2023-05-16 04:56] LABS: AMYLASE 75 U/L (30-110); LIPASE 86 U/L (23-300)
[2023-05-16 05:00] LABS: ALBUMIN 3.6 g/dL (3.5-5.0); ALKALINE PHOSPHATASE 120 U/L (38-126); BLOOD UREA NITROGEN 16 mg/dL (9-20); CHLORIDE 101 mmol/L (98-107); Calcium 8.5 mg/dL (8.4-10.2); Carbon Dioxide 25 mmol/L (22-30); EST GLOMERULAR FILTRATION RATE > 60.0 ML/MIN; Glucose 99 mg/dL (74-106); Potassium 3.9 mmol/L (3.5-5.1); SGOT/AST 25 U/L (17-59); SGPT/ALT 22 U/L (0-50); SODIUM 132 mmol/L (137-145); Total Protein 6.6 g/dL (6.3-8.2)
--- NOTE | 2023-05-16 09:21 | XRAY ---
Indication: Abdomen pain. Two-dimensional right upper quadrant abdominal sonogram performed. Comparison: None Gallbladder mildly distended with several small gallstones in the dependent portion, largest 2 cm, mixed with sludge. Borderline wall thickening measuring 2.7 mm. No pericholecystic fluid. Common bile that measures 7 mm. No intrahepatic biliary distention. Remaining visualized liver, pancreas, and right kidney are sonographically unremarkable. Right kidney measures 11.7 cm in length. Impression: Cholelithiasis and sludge with borderline gallbladder wall thickening. Rule out chronic cholecystitis.
[2023-05-16] MEDS: PROTONIX 40 MG IV IV SCH (09:28)
[2023-05-16] MEDS: PIPERACILLIN/TAZOBACTAM 3.375 GM in Sodium Chloride 100ML MINI-BAG PLUS 100 ML IV SCH ×3 (12:05→23:07)
[2023-05-16] MEDS ORDERED: Reglan 10 MG/2 ML IV SCH (12:45)
[2023-05-16] MEDS ORDERED: Transderm Scop 1.5MG Patch TOP PRN (12:45)
[2023-05-16] MEDS ORDERED: Pepcid 20 MG VIAL IV SCH (12:45)
[2023-05-16] MEDS ORDERED: Sensorcaine 0.25% 10 ML ONE (12:54)
[2023-05-16] MEDS ORDERED: Lactated Ringers 1,000 ML IV ONE (12:55)
[2023-05-16] MEDS ORDERED: MEFOXIN 2 GM PREMIX** 2 GM/50 ML ML IV SCH (13:00)
[2023-05-16] MEDS ORDERED: DIPRIVAN 200 MG/20 ML IV ONE (13:07)
[2023-05-16] MEDS ORDERED: Versed 2 MG/2 ML Injection ONE (13:07)
[2023-05-16] MEDS ORDERED: Zemuron 100 MG/10 ML ONE ×2 (13:07→13:44)
[2023-05-16] MEDS ORDERED: SUBLIMAZE 100 MCG/2 ML ONE ×2 (13:07→14:25)
--- NOTE | 2023-05-16 13:16 | PCM.NOTE ---
Date and Time: 05/16/23 0941 Subjective Assessment: is a 53 year old male with PMHX of chronic pain r/t OA. He presented to ED 05/15/23 with complaint of generalized abdominal pain, right lower back pain, with multiple episodes of vomiting without hematemesis for the prior 3 days with progressive worsening. Patient reports moderate to severe intensity sharp pain, aggravated with palpation, sitting or laying, and oral intake. Moving helps his pain. explained he has been to multiple emergency rooms with the same pain and has never been admitted. He does not drink alcohol and his last drink was [address] abd pelvis showed 1. Uneven pancreatic lipomatosis/ fatty infiltration. 2. Multiple tiny splenic calcific foci, mostly old granulomas. Lipase is 534. Pt made NPO and IV fluids started. Ordered US performed showing small gallstones/sludge and wall thickening. Patient continues to have 8/10 pain with N/V. Surgery has been consulted, patient to undergo surgical intervention today. - Review of Systems Constitutional: Chills, Weakness Eyes: No Symptoms Ears, Nose, & Throat: No Symptoms Respiratory: No Symptoms Cardiac: No Symptoms Abdominal/Gastrointestinal: Abdominal Pain, Nausea, Vomiting Genitourinary Symptoms: Dysuria Musculoskeletal: No Symptoms Skin: No Symptoms Neurological: No Symptoms Psychological: No Symptoms Objective Exam General Appearance: mild distress Neurologic Exam: alert, oriented x 3, cooperative Skin Exam: normal color Eye Exam: PERRL Ears, Nose, Throat Exam: normal ENT inspection Respiratory Exam: normal breath sounds, lungs clear Cardiovascular Exam: regular rate/rhythm, normal heart sounds Gastrointestinal/Abdomen Exam: soft, tenderness (TTP x 4 quads), guarding Extremity Exam: normal inspection Back Exam: normal inspection Male Genitalia Exam: deferred Rectal Exam: deferred OBJECTIVE DATA Vital Signs: Vital Signs - 24 hr Temp Pulse Resp BP Pulse Ox 05/16/23 12:44 97.3 F 61 17 105/58 96 05/16/23 12:00 97.3 F 61 17 105/58 96 05/16/23 07:50 18 05/16/23 06:55 97.3 F 52 L 17 116/68 96 05/16/23 04:00 97.5 F 59 L 18 119/70 95 05/16/23 00:00 97.8 F 60 18 122/68 96 05/15/23 22:00 18 95 05/15/23 20:00 18 05/15/23 19:58 98.8 F 60 18 133/73 94 L 05/15/23 19:42 100 05/15/23 18:00 16 95 05/15/23 16:23 18 94 L 05/15/23 16:00 98.0 F 59 L 18 139/74 97 Pain Assessment - Last Documented Pain Intensity 4 Pain Scale Used 0-10 Pain Scale Intake and Output: Intake & Output 05/14/23 05/15/23 05/16/23 05/17/23 11:59 11:59 11:59 11:59 Intake Total 0 298 Output Total 1400 Balance 0 -1102 Weight 111 kg 111 kg Lab Results: Lab Results-Last 24 Hours 05/15/23 05/15/23 05/16/23 Range/Units 18:18 23:17 04:13 WBC (4.0-10.5) x10^3/uL RBC (4.1-5.6) x10^6/uL Hgb (12.5-18.0) g/dL Hct (42-50) % MCV (78-100) fL MCH (26-32) pg MCHC (32-36) g/dL RDW (11.5-14.0) % Plt Count (150-450) x10^3/uL MPV (7.5-11.0) fL Sodium (137-145) mmol/L Potassium (3.5-5.1) mmol/L Chloride (98-107) mmol/L Carbon Dioxide (22-30) mmol/L Anion Gap (5-15) MEQ/L BUN (9-20) mg/dL Creatinine (0.66-1.25) mg/dL Estimated GFR ML/MIN Glucose (74-106) mg/dL POC Glucometer 111 H 101 (74 to 106) mg/dL Calcium (8.4-10.2) mg/dL Total Bilirubin (0.2-1.3) mg/dL AST (17-59) U/L ALT (0-50) U/L Alkaline Phosphatase (38-126) U/L Serum Total Protein (6.3-8.2) g/dL Albumin (3.5-5.0) g/dL Amylase (30-110) U/L Lipase (23-300) U/L TSH 3rd Generation 0.535 (0.47-4.68) mIU/L 05/16/23 05/16/23 05/16/23 Range/Units 04:13 04:13 04:13 WBC 22.9 H (4.0-10.5) x10^3/uL RBC 3.85 L (4.1-5.6) x10^6/uL Hgb 12.4 L (12.5-18.0) g/dL Hct 35.7 L (42-50) % MCV 92.7 (78-100) fL MCH 32.2 H (26-32) pg MCHC 34.7 (32-36) g/dL RDW 13.2 (11.5-14.0) % Plt Count 224 (150-450) x10^3/uL MPV 9.7 (7.5-11.0) fL Sodium 132 L (137-145) mmol/L Potassium 3.9 (3.5-5.1) mmol/L Chloride 101 (98-107) mmol/L Carbon Dioxide 25 (22-30) mmol/L Anion Gap 10.0 (5-15) MEQ/L BUN 16 (9-20) mg/dL Creatinine 0.60 L (0.66-1.25) mg/dL Estimated GFR > 60.0 ML/MIN Glucose 99 (74-106) mg/dL POC Glucometer (74 to 106) mg/dL Calcium 8.5 (8.4-10.2) mg/dL Total Bilirubin 0.90 (0.2-1.3) mg/dL AST 25 (17-59) U/L ALT 22 (0-50) U/L Alkaline Phosphatase 120 (38-126) U/L Serum Total Protein 6.6 (6.3-8.2) g/dL Albumin 3.6 (3.5-5.0) g/dL Amylase 75 (30-110) U/L Lipase 86 (23-300) U/L TSH 3rd Generation (0.47-4.68) mIU/L 05/16/23 05/16/23 Range/Units 05:48 11:52 WBC (4.0-10.5) x10^3/uL RBC (4.1-5.6) x10^6/uL Hgb (12.5-18.0) g/dL Hct (42-50) % MCV (78-100) fL MCH (26-32) pg MCHC (32-36) g/dL RDW (11.5-14.0) % Plt Count (150-450) x10^3/uL MPV (7.5-11.0) fL Sodium (137-145) mmol/L Potassium (3.5-5.1) mmol/L Chloride (98-107) mmol/L Carbon Dioxide (22-30) mmol/L Anion Gap (5-15) MEQ/L BUN (9-20) mg/dL Creatinine (0.66-1.25) mg/dL Estimated GFR ML/MIN Glucose (74-106) mg/dL POC Glucometer 99 87 (74 to 106) mg/dL Calcium (8.4-10.2) mg/dL Total Bilirubin (0.2-1.3) mg/dL AST (17-59) U/L ALT (0-50) U/L Alkaline Phosphatase (38-126) U/L Serum Total Protein (6.3-8.2) g/dL Albumin (3.5-5.0) g/dL Amylase (30-110) U/L Lipase (23-300) U/L TSH 3rd Generation (0.47-4.68) mIU/L Radiology Exams: Radiology Procedures Category Date Time Status ABDOMEN AND PELVIS W CONTRAST [CT] Stat Exams 05/15/23 06:15 Completed ABDOMINAL-LIMITED [US] Routine Exams 05/16/23 09:58 Completed CHEST 2 VIEWS (PA AND LAT) Routine Exams 05/15/23 10:27 Completed HIDA-GALL BLADDER [NUCMED] Urgent Exams 05/16/23 09:54 Ordered Assessment/Plan (1) Cholecystitis Current Visit: Yes Status: Acute Assessment & Plan: -U/S of abd showing small stones/sludge/wall thickening -WBC downtrending but still elevated, will continue to monitor/ Zosyn started -Surgery consulted, surgical intervention planned for today -Continue supportive care Code(s): K81.9 - CHOLECYSTITIS, UNSPECIFIED (2) Pancreatitis Current Visit: Yes Status: Acute Assessment & Plan: - Lipase 534- trend - N/V- Zofran PRN - Pantoprazole - Dilaudid for pain - Lipid panel - IV fluid bolus gave in ER - LR @ 125 - NPO except ice chips - US in AM - BC X2 - CT abd/ pelvis 05/15: 1. Uneven pancreatic lipomatosis/ fatty infiltration. 2. Multiple tiny splenic calcific foci, mostly old granulomas 3. Other findings as described. - Consider MRI 05/06: -Lipase now wnl at 86 Code(s): K85.90 - ACUTE PANCREATITIS WITHOUT NECROSIS OR INFECTION, UNSP (3) Chronic pain Current Visit: Yes Status: Acute Assessment & Plan: - Stop oral pain medication d/t NPO - Dilaudid PRN Code(s): G89.29 - OTHER CHRONIC PAIN (4) Hematuria Current Visit: Yes Status: Acute Assessment & Plan: - seen on UA - UC pending NGTD Code(s): R31.9 - HEMATURIA, UNSPECIFIED (5) Hyperlipidemia Current Visit: Yes Status: Acute Code(s): E78.5 - HYPERLIPIDEMIA, UNSPECIFIED (6) Lumbar back pain Current Visit: Yes Status: Acute Code(s): M54.50 - LOW BACK PAIN, UNSPECIFIED (7) Leukocytosis Current Visit: Yes Status: Acute Assessment & Plan: - R/T N/V? - WBC 26.0 - Chest XR negative - Procal 0.085 - LA WNL 05/16: -could be secondary to cholecystitis, plan for surgical intervention, zosyn started, continue to monitor Code(s): D72.829 - ELEVATED WHITE BLOOD CELL COUNT, UNSPECIFIED (8) Obesity (BMI 30.0-34.9) Current Visit: Yes Status: Acute Assessment & Plan: - advised diet and exercise control Code(s): E66.9 - OBESITY, UNSPECIFIED (9) Osteoarthritis Current Visit: Yes Status: Acute Assessment & Plan: - Stop oral pain medication d/t NPO - Dilaudid PRN 05/16: -Dilaudid OFFSET PRESS OPERATOR VTE: SCD's PPI: Pantoprazole Next of kin: D/C plan: 1-2 days Code(s): M19.90 - UNSPECIFIED OSTEOARTHRITIS, UNSPECIFIED SITE
[2023-05-16] MEDS ORDERED: TORAdol 30 mg Injection ONE (13:28)
[2023-05-16] MEDS ORDERED: Decadron 4 MG INJ ONE (13:28)
[2023-05-16] MEDS ORDERED: Zofran 4 MG/2 ML VIAL ONE (13:28)
[2023-05-16] MEDS ORDERED: BRIDION 200MG/2ML IV ONE (13:30)
[2023-05-16] MEDS ORDERED: Hydromorphone 1 mg/ml Injection IV PRN (13:52)
[2023-05-16] MEDS ORDERED: NORCO 5/325 MG PO PRN (15:12)
[2023-05-16] MEDS ORDERED: Zofran 4 MG/2 ML VIAL IV PRN ×2 (15:12→17:30)
[2023-05-16] MEDS: MORPHINE SULFATE 4 MG INJ IV PRN ×3 (18:04→21:33)
[2023-05-16] MEDS: Hydromorphone 1 mg/ml Injection IV PRN (23:07)
[2023-05-17] MEDS: Lactated Ringers 1,000 ML IV SCH (01:46)
[2023-05-17] MEDS: Hydromorphone 1 mg/ml Injection IV PRN ×2 (02:11→05:16)
[2023-05-17] MEDS: PIPERACILLIN/TAZOBACTAM 3.375 GM in Sodium Chloride 100ML MINI-BAG PLUS 100 ML IV SCH ×2 (05:16→13:56)
[2023-05-17 06:45] LABS: Hematocrit 35.3 % (42-50); Mean Cell Volume 93.4 fL (78-100); Mean Corpuscular Hemoglobin 31.7 pg (26-32); Mean Platelet Volume 10.1 fL (7.5-11.0); Platelet Count 197 x10^3/uL (150-450); Red Blood Count 3.78 x10^6/uL (4.1-5.6); Red Cell Distribution Width 12.5 % (11.5-14.0); White Blood Count 14.6 x10^3/uL (4.0-10.5)
[2023-05-17 07:02] LABS: ALBUMIN 3.7 g/dL (3.5-5.0); ALKALINE PHOSPHATASE 161 U/L (38-126); ANION GAP 9.9 MEQ/L (5-15); BLOOD UREA NITROGEN 15 mg/dL (9-20); CHLORIDE 103 mmol/L (98-107); Calcium 8.6 mg/dL (8.4-10.2); Carbon Dioxide 25 mmol/L (22-30); Creatinine 1 0.73 mg/dL (0.66-1.25); EST GLOMERULAR FILTRATION RATE > 60.0 ML/MIN; Glucose 107 mg/dL (74-106); LIPASE 11 U/L (23-300); SGOT/AST 37 U/L (17-59); SGPT/ALT 35 U/L (0-50); SODIUM 134 mmol/L (137-145); Total Protein 6.7 g/dL (6.3-8.2)
--- NOTE | 2023-05-17 07:59 | CONS ---
CONSULT DATE: 05/16/2023 HISTORY: This patient is seen for Dr. Saji Robertson who was cotton inspector for our group today. He asked that I see the patient while I was here doing some outpatient procedures. A 53-year-old gentleman had mid abdominal pain and some vomiting the past three days that was not improving and he came in. He had elevated pancreatic enzymes that came down to normal. He had gallstones and sludge in his gallbladder. It looks like he had a lipase of 534. The nursing staff said it was down to normal range of 83. His hemoglobin 14.6, PLT 291,000. He did have a little bit of leukocytosis. PAST MEDICAL HISTORY: History of weakness. Denies of any chronic heart disease or diabetes. PAST SURGICAL HISTORY: Knee surgery. He denied any prior abdominal surgery. MEDICATIONS: Multivitamin, oxycodone/acetaminophen. ALLERGIES: NKDA. FAMILY HISTORY: Negative in regards to this problem. SOCIAL HISTORY: No smoking. He denied alcohol abuse. He did drink in the past but not recently. REVIEW OF SYSTEMS: Fourteen systems reviewed per admission assessment. LAB DATA AND TESTS: CT scan showed some pancreatic fatty infiltration, calcification over the spleen. He did have some gallstones. PHYSICAL EXAMINATION: GENERAL: No acute distress. HEENT: Sclera nonicteric. EOMI. Oral mucous membranes moist. NECK: No JVD. CHEST: Equal excursion. CVS: Regular rate and rhythm. ABDOMEN: Soft. He had some tenderness in the mid epigastrium. No peritoneal signs. EXTREMITIES: No cyanosis. NEURO: Alert, moving extremities grossly symmetrically. PSYCH: Appropriate mood and affect. IMPRESSION: Mid abdominal pain. He does have cholelithiasis and some sludge. He did have some elevated pancreatic enzymes that came down to normal. Whether some of his persistent pain is related to pancreatitis or whether cholecystitis/cholelithiasis unclear. Either way discussed the options of cholecystectomy. General risk of bleeding or infection, risk of trocar injury or hernia, risk of bowel, bladder or blood vessel injury, risk of bile leak, bile duct injury, retained stone or sludge possibly requiring further procedure either open or ERCP, general risk of anesthesia, deep venous thrombosis, pulmonary embolism, pneumonia, perioperative risk of aches, pains, bloating, constipation and/or loose stools. He also understands that his pain could be related to pancreatitis and cholecystectomy might not improve it but may decrease the risk of sludge or gallstones causing future pancreas issues. If he does have pancreatitis he may have to improve on its own. He understands all of the above, desires to go ahead and proceed with cholecystectomy. Dr. Saji Robertson was cotton inspector today. He is tied up at [facility] and asked that I go ahead and proceed with operating on him while I was here.
--- NOTE | 2023-05-17 08:21 | OP ---
SURGERY DATE/TIME: 05/16/2023 1313 PREOPERATIVE DIAGNOSES: 1) History of acute abdominal pain, history of pancreatitis. 2) History of cholelithiasis, gallbladder sludge, chronic cholecystitis. POSTOPERATIVE DIAGNOSES: 1) History of acute abdominal pain, history of pancreatitis. 2) History of cholelithiasis, gallbladder sludge, chronic cholecystitis. PROCEDURE: Laparoscopic cholecystectomy. SURGEON: Dr. Kin Mendez. ANESTHESIA: General. ESTIMATED BLOOD LOSS: Minimal. INDICATIONS: As noted above. Risks and benefits explained in detail but not limited to and consent obtained. DESCRIPTION OF PROCEDURE AND FINDINGS: The patient was taken to the operating room. General anesthesia induced. Abdomen prepped and draped in the usual sterile fashion. After official time out and no disagreement with planned procedure, a transverse incision made in the supraumbilical area. Fascia grasped, pulled upward. Veress needle inserted and tested with saline. Pneumoperitoneum accomplished insufflating opening pressure of 0-15. A 5 mm bladeless port and camera were inserted without difficulty followed by two - 5 mm right upper quadrant ports and 11 mm epigastric port. The gallbladder is quite distended. The superficial anatomy was grossly unremarkable. He did have a little bit of irritated bowel but no signs of any obvious purulence or superficial anatomy issues. The gallbladder was distended. There was not a thick wall but he did have gallstones and had some sludge on ultrasound. It was thought that he definitely warranted cholecystectomy but as he had been explained with the family in preop with the patient, a lot of his pain could be pancreatitis and it will need to improve on its own and cholecystectomy will not necessarily make him feel better. Risks and benefits had been explained in detail but not limited to, including fatty food. At this point began grasping the gallbladder with the grasper. Dissected posterior, lateral to anterior fashion slowly and carefully the cystic duct, infundibular and main cystic artery isolated until critical view was obtained both anteriorly and posteriorly. Once this is accomplished, the cystic duct and cystic artery were clipped x3 and divided in the usual fashion. The gallbladder is slowly and carefully dissected free from its dense attachments to the liver bed staying directly on the gallbladder wall. Just prior to releasing from final attachments to the liver bed, clips noted in place in the cystic duct and cystic artery stumps. No signs of any active bleeding or bile leakage at this point. The gallbladder was released from final attachments to anterior edge of the liver and placed in the bag, decompressing some of the bile in the bag. The gallbladder pulled free out the epigastrium and passed off. There were moderately large stones. The port is replaced. Copious amount of irrigation accomplished lateral to the liver and subhepatic space irrigating clear. Clips noted to be in place cystic duct and cystic artery stumps. No signs of any active bleeding or bile leakage. It was felt there was no benefit in drain placement. At this point the fascial defect at 1011 site closed with puncture closure device with #1 Vicryl. Pneumoperitoneum decompressed at this point. Skin incision closed with 4-0 Vicryl. 0.25% Marcaine local injected along the skin incision fascial defect. The patient tolerated the procedure well. There were no immediate complications. Findings discussed with the family out in the waiting area including the fact that while his gallbladder was not thick walled and more of his pain related to his pancreatitis versus gallbladder stone. He was transferred to the recovery room in stable condition.
[2023-05-17] MEDS: HYDROCODONE-ACETAMIN 10-325 MG PO PRN ×4 (09:27→23:02)
[2023-05-17] MEDS: PROTONIX 40 MG IV IV SCH (09:31)
--- NOTE | 2023-05-17 13:00 | PCM.NOTE ---
Date and Time: 05/17/23 1254 Subjective Assessment: is a 53 year old male with PMHX of chronic pain r/t OA. He presented to ED 05/15/23 with complaint of generalized abdominal pain, right lower back pain, with multiple episodes of vomiting without hematemesis for the prior 3 days with progressive worsening. Patient reports moderate to severe intensity sharp pain, aggravated with palpation, sitting or laying, and oral intake. Moving helps his pain. explained he has been to multiple emergency rooms with the same pain and has never been admitted. He does not drink alcohol and his last drink was [address] abd pelvis showed 1. Uneven pancreatic lipomatosis/ fatty infiltration. 2. Multiple tiny splenic calcific foci, mostly old granulomas. US performed showing small gallstones/sludge and wall thickening. Surgery consulted, patient underwent lap denise, today is PODS#1. Patient endorsing 10/10 pain on exam in abdomen and right shoulder. +flatus, no BM yet. Advised patient on the importance of ambulation post surgery for pain control. Started oral pain control. Plans for discharge tomorrow once pain is better controlled. - Review of Systems Constitutional: No Symptoms Eyes: No Symptoms Ears, Nose, & Throat: No Symptoms Respiratory: No Symptoms Cardiac: No Symptoms Abdominal/Gastrointestinal: Abdominal Pain Genitourinary Symptoms: No Symptoms Musculoskeletal: No Symptoms Skin: No Symptoms Neurological: No Symptoms Objective Exam General Appearance: mild distress Neurologic Exam: alert, oriented x 3, cooperative Skin Exam: normal color, other (4 puncture sites with gauze/tegederm) Wound Assessment: Skin/Wound Assessment Wound/Incision Assessment Start: 05/16/23 15: 36 Text: Status: Active Freq: Q4H Protocol: Document 05/17/23 08:00 KD (Rec: 05/17/23 09:54 KD [id number]) Co-Sign 05/17/23 08:00 RB Wound/Incision Assessment Abdomen Wound Assessment Shift Assessment Wound Type Puncture Wound Stage Non Pressure Wound Dressing Status Dry & Intact Drainage Amount None Drainage Odor None/Absent Primary Dressing Gauze Pads Secondary Dressing TEGADERM Comment 4 PUNCTURE SITES NOTED. COVERED WITH STERI STIPS, GAUZE AND TEGADERM. NO DRAINAGE AT THIS TIME Wound Photo Photo Taken No Eye Exam: PERRL Ears, Nose, Throat Exam: normal ENT inspection Neck Exam: normal inspection Respiratory Exam: normal breath sounds, lungs clear Cardiovascular Exam: regular rate/rhythm, normal heart sounds Gastrointestinal/Abdomen Exam: soft, normal bowel sounds, tenderness Extremity Exam: normal inspection Back Exam: normal inspection OBJECTIVE DATA Vital Signs: Vital Signs - 24 hr Temp Pulse Resp BP Pulse Ox 05/17/23 11:50 97.3 F 51 L 18 140/67 98 05/17/23 08:00 16 05/17/23 06:42 98.7 F 50 L 16 125/61 93 L 05/17/23 04:00 97.7 F 59 L 16 138/77 95 05/16/23 22:50 97.5 F 56 L 16 117/67 94 L 05/16/23 19:35 97.5 F 52 L 16 133/74 97 05/16/23 17:35 97.3 F 53 L 17 128/64 96 05/16/23 16:35 97.4 F 50 L 17 143/68 97 05/16/23 16:05 97.1 F 55 L 17 146/70 96 05/16/23 15:38 18 05/16/23 15:35 97.0 F 56 L 17 138/70 96 05/16/23 15:20 97.2 F 56 L 17 140/68 97 05/16/23 15:05 97.1 F 59 L 17 146/78 96 Pain Assessment - Last Documented Pain Intensity 6 Pain Scale Used 0-10 Pain Scale Intake and Output: Intake & Output 05/15/23 05/16/23 05/17/23 05/18/23 11:59 11:59 11:59 11:59 Intake Total 0 298 5114 Output Total 1400 1900 Balance 0 -1102 3214 Weight 111 kg 111 kg Lab Results: Lab Results-Last 24 Hours 05/17/23 05/17/23 Range/Units 06:23 06:23 WBC 14.6 H (4.0-10.5) x10^3/uL RBC 3.78 L (4.1-5.6) x10^6/uL Hgb 12.0 L (12.5-18.0) g/dL Hct 35.3 L (42-50) % MCV 93.4 (78-100) fL MCH 31.7 (26-32) pg MCHC 34.0 (32-36) g/dL RDW 12.5 (11.5-14.0) % Plt Count 197 (150-450) x10^3/uL MPV 10.1 (7.5-11.0) fL Sodium 134 L (137-145) mmol/L Potassium 4.0 (3.5-5.1) mmol/L Chloride 103 (98-107) mmol/L Carbon Dioxide 25 (22-30) mmol/L Anion Gap 9.9 (5-15) MEQ/L BUN 15 (9-20) mg/dL Creatinine 0.73 (0.66-1.25) mg/dL Estimated GFR > 60.0 ML/MIN Glucose 107 H (74-106) mg/dL Calcium 8.6 (8.4-10.2) mg/dL Total Bilirubin 0.80 (0.2-1.3) mg/dL AST 37 (17-59) U/L ALT 35 (0-50) U/L Alkaline Phosphatase 161 H (38-126) U/L Serum Total Protein 6.7 (6.3-8.2) g/dL Albumin 3.7 (3.5-5.0) g/dL Lipase 11 L (23-300) U/L Radiology Exams: Radiology Procedures Category Date Time Status ABDOMINAL-LIMITED [US] Routine Exams 05/16/23 09:58 Completed Multi-Disciplinary Progress Notes: Multi-Disciplinary Progress Notes 05/17/23 11:41 Case Management Note by Deepthi Marquez S/W PATIENT STILL PLANS TO RETURN HOME AT HIS PLOF WITH HIS AT DISCHARGE. STILL VOICES NO NEW NEEDS AT [place]. Initialized on 05/17/23 11:41 - END OF NOTE Assessment/Plan (1) Cholecystitis Current Visit: Yes Status: Acute Assessment & Plan: -U/S of abd showing small stones/sludge/wall thickening -WBC downtrending but still elevated, will continue to monitor/ Zosyn started -Surgery consulted, surgical intervention planned for today 05/17: -Continue supportive care -Pods #1, plan for pain control overnight and discharge tomorrow Code(s): K81.9 - CHOLECYSTITIS, UNSPECIFIED (2) Pancreatitis Current Visit: Yes Status: Acute Assessment & Plan: - Lipase 534- trend - N/V- Zofran PRN - Pantoprazole - Dilaudid for pain - Lipid panel - IV fluid bolus gave in ER - LR @ 125 - NPO except ice chips - US in AM - BC X2 - CT abd/ pelvis 05/15: 1. Uneven pancreatic lipomatosis/ fatty infiltration. 2. Multiple tiny splenic calcific foci, mostly old granulomas 3. Other findings as described. - Consider MRI 05/16: -Lipase now wnl at 86 05/17: -Most likely secondary to GB disease -lipase now normal Code(s): K85.90 - ACUTE PANCREATITIS WITHOUT NECROSIS OR INFECTION, UNSP (3) Chronic pain Current Visit: Yes Status: Acute Assessment & Plan: - Stop oral pain medication d/t NPO - Dilaudid PRN 05/17: -D/c diluadid/IV pain meds -start [place] 10/325mg for pain control Code(s): G89.29 - OTHER CHRONIC PAIN (4) Hematuria Current Visit: Yes Status: Acute Assessment & Plan: - seen on UA - UC pending NGTD -May need to see urology as OP, advised f/u with PCP for referral Code(s): R31.9 - HEMATURIA, UNSPECIFIED (5) Hyperlipidemia Current Visit: Yes Status: Acute Assessment & Plan: -noted Code(s): E78.5 - HYPERLIPIDEMIA, UNSPECIFIED (6) Lumbar back pain Current Visit: Yes Status: Acute Assessment & Plan: -noted, pain management per pcp Code(s): M54.50 - LOW BACK PAIN, UNSPECIFIED (7) Leukocytosis Current Visit: Yes Status: Acute Assessment & Plan: - R/T N/V? - WBC 26.0 - Chest XR negative - Procal 0.085 - LA WNL 05/16: -could be secondary to cholecystitis, plan for surgical intervention, zosyn started, continue to monitor 05/17: -Improved Code(s): D72.829 - ELEVATED WHITE BLOOD CELL COUNT, UNSPECIFIED (8) Obesity (BMI 30.0-34.9) Current Visit: Yes Status: Acute Assessment & Plan: - advised diet and exercise control Code(s): E66.9 - OBESITY, UNSPECIFIED (9) Osteoarthritis Current Visit: Yes Status: Acute Assessment & Plan: - Stop oral pain medication d/t NPO - Dilaudid PRN 05/16: -Dilaudid [employer] 05/17: -[place] 05/25 VTE: SCD's PPI: Pantoprazole Next of kin: D/C plan: tomorrow Code(s): M19.90 - UNSPECIFIED OSTEOARTHRITIS, UNSPECIFIED SITE
[2023-05-17 15:42] LABS: Pathologist Review Y
[2023-05-17] MEDS ORDERED: ZOFRAN ODT 4 MG PO PRN (16:46)
[2023-05-17] MEDS ORDERED: Compazine 5 MG PO PRN ×2 (18:15→18:21)
[2023-05-18] MEDS: HYDROCODONE-ACETAMIN 10-325 MG PO PRN ×2 (03:35→08:35)
[2023-05-18 04:48] LABS: Hematocrit 37.8 % (42-50); Hemoglobin 12.8 g/dL (12.5-18.0); Mean Cell Volume 93.8 fL (78-100); Mean Corpuscular Hemoglobin 31.8 pg (26-32); Mean Corpuscular Hgb Concent. 33.9 g/dL (32-36); Platelet Count 235 x10^3/uL (150-450); Red Blood Count 4.03 x10^6/uL (4.1-5.6); Red Cell Distribution Width 12.6 % (11.5-14.0); White Blood Count 12.8 x10^3/uL (4.0-10.5)
[2023-05-18] MEDS: TYLENOL 325 MG PO PRN (05:03)
[2023-05-18 05:13] LABS: ALBUMIN 3.8 g/dL (3.5-5.0); ALKALINE PHOSPHATASE 166 U/L (38-126); ANION GAP 11.4 MEQ/L (5-15); BLOOD UREA NITROGEN 18 mg/dL (9-20); CHLORIDE 102 mmol/L (98-107); Calcium 8.7 mg/dL (8.4-10.2); Carbon Dioxide 25 mmol/L (22-30); Creatinine 1 0.79 mg/dL (0.66-1.25); EST GLOMERULAR FILTRATION RATE > 60.0 ML/MIN; Glucose 91 mg/dL (74-106); Potassium 3.7 mmol/L (3.5-5.1); SGOT/AST 79 U/L (17-59); SGPT/ALT 88 U/L (0-50); SODIUM 135 mmol/L (137-145); Total Protein 6.9 g/dL (6.3-8.2)
--- NOTE | 2023-05-18 05:24 | PCM.DS ---
Discharge Summary Date of Admission: 05/15/23 08:45 Date of Discharge: 05/18/23 Admitting Physician: CLAUDINE WEBB MD Consults: Consults on Case 05/16/23 09:56 Consult Surgery ROUTINE Primary Care Provider: LORY LEE MD Allergies Allergies No Known Drug Allergies Allergy (Verified 05/15/23 06:15) Hospital Summary - Hospital Course Hospital Course: is a 53 year old male with PMHX of chronic pain r/t OA. He presented to ED 05/15/23 with complaint of generalized abdominal pain, right lower back pain, with multiple episodes of vomiting without hematemesis for the prior 3 days with progressive worsening. Patient reports moderate to severe intensity sharp pain, aggravated with palpation, sitting or laying, and oral intake. Moving helps his pain. explained he has been to multiple emergency rooms with the same pain and has never been admitted. He does not drink alcohol and his last drink was [address] abd pelvis showed 1. Uneven pancreatic lipomatosis/ fatty i nfiltration. 2. Multiple tiny splenic calcific foci, mostly old granulomas. US performed showing small gallstones/sludge and wall thickening. Surgery consulted, patient underwent lap chole1. He is PODS#2 and doing well, able to ambulate, tolerate a diet with no n/v, and pain is controlled. Patient states he is ready for discharge. New Diagnosis: cholecystitis New Medications: compazine, norco Follow Up: pcp/surgery Latest Assessment & Plan (1) Cholecystitis Current Visit: Yes Status: Acute Assessment & Plan: -U/S of abd showing small stones/sludge/wall thickening -WBC downtrending but still elevated, will continue to monitor/ Zosyn started -Surgery consulted, surgical intervention planned for today 05/17: -Continue supportive care -Pods #1, plan for pain control overnight and discharge tomorrow Code(s): K81.9 - CHOLECYSTITIS, UNSPECIFIED (2) Pancreatitis Current Visit: Yes Status: Acute Assessment & Plan: - Lipase 534- trend - N/V- Zofran PRN - Pantoprazole - Dilaudid for pain - Lipid panel - IV fluid bolus gave in ER - LR @ 125 - NPO except ice chips - US in AM - BC X2 - CT abd/ pelvis 05/15: 1. Uneven pancreatic lipomatosis/ fatty infiltration. 2. Multiple tiny splenic calcific foci, mostly old granulomas 3. Other findings as described. - Consider MRI 05/16: -Lipase now wnl at 86 05/17: -Most likely secondary to GB disease -lipase now normal Code(s): K85.90 - ACUTE PANCREATITIS WITHOUT NECROSIS OR INFECTION, UNSP (3) Chronic pain Current Visit: Yes Status: Acute Assessment & Plan: - Stop oral pain medication d/t NPO - Dilaudid PRN 05/17: -D/c diluadid/IV pain meds -start [place] 10/325mg for pain control Code(s): G89.29 - OTHER CHRONIC PAIN (4) Hematuria Current Visit: Yes Status: Acute Assessment & Plan: - seen on UA - UC pending NGTD -May need to see urology as OP, advised f/u with PCP for referral Code(s): R31.9 - HEMATURIA, UNSPECIFIED (5) Hyperlipidemia Current Visit: Yes Status: Acute Assessment & Plan: -noted Code(s): E78.5 - HYPERLIPIDEMIA, UNSPECIFIED (6) Lumbar back pain Current Visit: Yes Status: Acute Assessment & Plan: -noted, pain management per pcp Code(s): M54.50 - LOW BACK PAIN, UNSPECIFIED (7) Leukocytosis Current Visit: Yes Status: Acute Assessment & Plan: - R/T N/V? - WBC 26.0 - Chest XR negative - Procal 0.085 - LA WNL 05/16: -could be secondary to cholecystitis, plan for surgical intervention, zosyn started, continue to monitor 05/17: -Improved Code(s): D72.829 - ELEVATED WHITE BLOOD CELL COUNT, UNSPECIFIED (8) Obesity (BMI 30.0-34.9) Current Visit: Yes Status: Acute Assessment & Plan: - advised diet and exercise control Code(s): E66.9 - OBESITY, UNSPECIFIED (9) Osteoarthritis Current Visit: Yes Status: Acute Assessment & Plan: - Stop oral pain medication d/t NPO - Dilaudid PRN 05/16: -Dilaudid [employer] 05/17: -[place] 10/25 VTE: SCD's PPI: Pantoprazole Next of kin: D/C plan: tomorrow Code(s): M19.90 - UNSPECIFIED OSTEOARTHRITIS, UNSPECIFIED SITE I spent 35 minutes [id number] with the patient on the day of discharge performing discharge exam, discussing hospital stay and discharge instructions with patient and caregivers, preparation of discharge records, prescriptions & referral forms and addressing any questions/concerns the patient had as documented above. - Vitals & Intake/Output Vital Signs: Vital Signs Temperature 98.8 F 05/18/23 03:58 Pulse Rate 58 L 05/18/23 03:58 Respiratory Rate 18 05/18/23 03:59 Blood Pressure 137/77 05/18/23 03:58 O2 Sat by Pulse Oximetry 96 05/18/23 03:58 Intake & Output: Intake & Output 05/15/23 05/16/23 05/17/23 05/18/23 11:59 11:59 11:59 11:59 Intake Total 0 298 5114 940 Output Total 1400 1900 Balance 0 -1102 3214 940 Weight 111 kg 111 kg - Lab Result Diagrams: 05/18/23 04:37 05/18/23 04:37 Lab Results-Last 24 Hrs: Lab Results-Last 24 Hours 05/15/23 05/17/23 05/17/23 Range/Units 06:30 06:23 06:23 WBC 14.6 H (4.0-10.5) x10^3/uL RBC 3.78 L (4.1-5.6) x10^6/uL Hgb 12.0 L (12.5-18.0) g/dL Hct 35.3 L (42-50) % MCV 93.4 (78-100) fL MCH 31.7 (26-32) pg MCHC 34.0 (32-36) g/dL RDW 12.5 (11.5-14.0) % Plt Count 197 (150-450) x10^3/uL MPV 10.1 (7.5-11.0) fL Smear Path Review Y Sodium 134 L (137-145) mmol/L Potassium 4.0 (3.5-5.1) mmol/L Chloride 103 (98-107) mmol/L Carbon Dioxide 25 (22-30) mmol/L Anion Gap 9.9 (5-15) MEQ/L BUN 15 (9-20) mg/dL Creatinine 0.73 (0.66-1.25) mg/dL Estimated GFR > 60.0 ML/MIN Glucose 107 H (74-106) mg/dL Calcium 8.6 (8.4-10.2) mg/dL Total Bilirubin 0.80 (0.2-1.3) mg/dL AST 37 (17-59) U/L ALT 35 (0-50) U/L Alkaline Phosphatase 161 H (38-126) U/L Serum Total Protein 6.7 (6.3-8.2) g/dL Albumin 3.7 (3.5-5.0) g/dL Lipase 11 L (23-300) U/L 05/18/23 05/18/23 Range/Units 04:37 04:37 WBC 12.8 H (4.0-10.5) x10^3/uL RBC 4.03 L (4.1-5.6) x10^6/uL Hgb 12.8 (12.5-18.0) g/dL Hct 37.8 L (42-50) % MCV 93.8 (78-100) fL MCH 31.8 (26-32) pg MCHC 33.9 (32-36) g/dL RDW 12.6 (11.5-14.0) % Plt Count 235 (150-450) x10^3/uL MPV 10.0 (7.5-11.0) fL Smear Path Review Sodium 135 L (137-145) mmol/L Potassium 3.7 (3.5-5.1) mmol/L Chloride 102 (98-107) mmol/L Carbon Dioxide 25 (22-30) mmol/L Anion Gap 11.4 (5-15) MEQ/L BUN 18 (9-20) mg/dL Creatinine 0.79 (0.66-1.25) mg/dL Estimated GFR > 60.0 ML/MIN Glucose 91 (74-106) mg/dL Calcium 8.7 (8.4-10.2) mg/dL Total Bilirubin 0.70 (0.2-1.3) mg/dL AST 79 H (17-59) U/L ALT 88 H (0-50) U/L Alkaline Phosphatase 166 H (38-126) U/L Serum Total Protein 6.9 (6.3-8.2) g/dL Albumin 3.8 (3.5-5.0) g/dL Lipase (23-300) U/L Micro Results-Entire Visit: Microbiology 05/15/23 08:17 Urine Culture - Final Urine, Void <10K NORMAL SKIN [place]EL PROBABLE SKIN CONTAMINANT 05/15/23 10:35 Blood Culture - Preliminary Blood 05/15/23 10:10 Blood Culture - Preliminary Blood - Radiology Exams Ordered Rad Exams-Entire Visit: Radiology Procedures Category Date Time Status ABDOMINAL-LIMITED [US] Routine Exams 05/16/23 09:58 Completed - Procedures and Test Procedures and Tests throughout Hospitalization: Therapy Orders & Screens 05/16/23 20:29 Incentive Spirometry UD Comment: Diagnosis: Pancreatitis Discharge Exam General Appearance: no apparent distress Neurologic Exam: alert, oriented x 3, cooperative Eye Exam: PERRL Ears, Nose, Throat Exam: moist mucous membranes Neck Exam: normal inspection Respiratory Exam: normal breath sounds, lungs clear Cardiovascular Exam: regular rate/rhythm, normal heart sounds Gastrointestinal/Abdomen Exam: soft, other (4 px CDI) Male Genitalia Exam: deferred Rectal Exam: deferred Wound Assessment: Skin/Wound Assessment Wound/Incision Assessment Start: 05/16/23 15:36 Text: Status: Active Freq: Q4H Protocol: Document 05/18/23 03:59 MH (Rec: 05/18/23 04:00 MH [id number]) Wound/Incision Assessment Abdomen Wound Assessment Shift Assessment Wound Type Puncture Wound Stage Non Pressure Wound Dressing Status Dry & Intact Drainage Amount None Drainage Odor None/Absent Primary Dressing Gauze Pads Secondary Dressing TEGADERM Comment 4 PUNCTURE SITES NOTED. COVERED WITH STERI STIPS, GAUZE AND TEGADERM. NO DRAINAGE AT THIS TIME - remains true Wound Photo Photo Taken No Final Diagnosis/Problem List - Final Discharge Diagnosis/Problem (1) Cholecystitis Current Visit: Yes Status: Acute Code(s): K81.9 - CHOLECYSTITIS, UNSPECIFIED (2) Pancreatitis Current Visit: Yes Status: Acute Code(s): K85.90 - ACUTE PANCREATITIS WITHOUT NECROSIS OR INFECTION, UNSP (3) Chronic pain Current Visit: Yes Status: Acute Code(s): G89.29 - OTHER CHRONIC PAIN (4) Hematuria Current Visit: Yes Status: Acute Code(s): R31.9 - HEMATURIA, UNSPECIFIED (5) Hyperlipidemia Current Visit: Yes Status: Acute Code(s): E78.5 - HYPERLIPIDEMIA, UNSPECIFIED (6) Lumbar back pain Current Visit: Yes Status: Acute Code(s): M54.50 - LOW BACK PAIN, UNSPECIFIED (7) Leukocytosis Current Visit: Yes Status: Acute Code(s): D72.829 - ELEVATED WHITE BLOOD CELL COUNT, UNSPECIFIED (8) Obesity (BMI 30.0-34.9) Current Visit: Yes Status: Acute Code(s): E66.9 - OBESITY, UNSPECIFIED (9) Osteoarthritis Current Visit: Yes Status: Acute Code(s): M19.90 - UNSPECIFIED OSTEOARTHRITIS, UNSPECIFIED SITE - Discharge Disposition: Home, Self-Care Condition: Stable Prescriptions: New Hydrocodone/Acetaminophen [Hydrocodone-Acetamin 5-325 mg] 1 tab PO Q4HPRN PRN #15 tablet MDD 6 PRN Reason: Pain Prochlorperazine Maleate 5 mg* [Compazine 5 MG] 10 mg PO Q6H PRN PRN 14 Days #10 tablet PRN Reason: Nausea Continue Oxycodone HCl/Acetaminophen [Oxycodone-Acetaminophn 7.5-325] 1 each PO Q6H PRN PRN PRN Reason: Pain Multivitamin [Multi-Vitamin Daily] 1 tab PO DAILY Additional Instructions: RETURN TO WORK IN 1 WEEK AFTER RELEASED Follow up with: SHAKIRA QUIÑONEZ [COURTESY STAFF] - (follow up one week. ) LORY LEE MD [Primary Care Provider] - Forms: Work/School Release Form
[2023-05-18] MEDS ORDERED: Compazine 5 MG PO PRN (07:01)
[2023-05-18 07:37] VITALS: BP 128/72; PULSE 52; RESP 16; TEMP 97.7; O2SAT 92
== END 2023-05-18 12:29 | disposition home or self-care (01) ==
LOC: ED 05:50 → MED SURG 08:45
PROVIDERS: ADMIT Internal Medicine; ATTEND Internal Medicine
DX: K81.1 Chronic cholecystitis (principal); K85.90 Acute pancreatitis without necrosis or infection, unspecified; G89.29 Other chronic pain; R31.9 Hematuria, unspecified; E78.5 Hyperlipidemia, unspecified; M54.50 Low back pain, unspecified; D72.829 Elevated white blood cell count, unspecified; E66.9 Obesity, unspecified; M19.90 Unspecified osteoarthritis, unspecified site; Z79.899 Other long term (current) drug therapy; Z20.828 Contact with and (suspected) exposure to other viral communicable diseases; Z87.19 Personal history of other diseases of the digestive system
CPT/HCPCS: 36000; 36415; 47562; 71046; 74177; 76705; 80053; 80061; 81001; 82150; 82947; 83036; 83605; 83690; 83721; 83735; 84145; 84443; 85025; 85027; 87040; 87086; 93268; 96360; 96361; 96374; 96375; 96376; 99285; G0378; Q3014; 88304; J0694; J1100; J1170; J1885; J2250; J2270; J2405; J2704; J3010; Q0162; A9270-GY

== ENCOUNTER 2023-05-31 12:17 | Emergency (ER) | payer BC ==
[2023-05-31 12:31] VITALS: TEMP 97.3
[2023-05-31] MEDS ORDERED: MORPHINE SULFATE 4 MG INJ IV ONE (13:10)
[2023-05-31] MEDS ORDERED: Sodium Chloride 0.9% 1000 ML 1,000 ML IV STA (13:10)
[2023-05-31] MEDS ORDERED: Zofran 4 MG/2 ML VIAL IV ONE ×2 (13:10→16:00)
[2023-05-31 13:18] LABS: Absolute Neutrophil Ct (ANC) 13.73 x10^3/uL (1.4-6.9); BASOPHIL % 0.4 % (0.0-0.4); Basophil (Absolute #) 0.07 x10^3/uL (0-0.4); Eosinophil % 0.6 % (0.00-5.0); Eosinophil (Absolute #) 0.09 x10^3/uL (0-0.5); Hematocrit 45.9 % (42-50); Hemoglobin 15.3 g/dL (12.5-18.0); IMMATURE GRAN % 0.6 % (0.00-0.4); Lymphocyte (Absolute #) 1.37 x10^3/uL (1.0-4.6); Lymphocytes % 8.6 % (24.0-44.0); Mean Cell Volume 94.8 fL (78-100); Mean Corpuscular Hemoglobin 31.6 pg (26-32); Mean Corpuscular Hgb Concent. 33.3 g/dL (32-36); Mean Platelet Volume 9.4 fL (7.5-11.0); Monocytes % 3.2 % (0.0-12.0); Neutrophil % 86.6 % (36.0-66.0); Platelet Count 356 x10^3/uL (150-450); Red Blood Count 4.84 x10^6/uL (4.1-5.6); Red Cell Distribution Width 12.2 % (11.5-14.0); White Blood Count 15.9 x10^3/uL (4.0-10.5)
[2023-05-31 13:25] LABS: Appearance Clear (Clear); Bacteria None Seen /HPF (None Seen); Bilirubin Negative (Negative); Blood Moderate (Negative); Epithelial Cells None Seen /HPF (None Seen); Glucose, Urine Negative (Negative); Hyaline Casts NONE SEEN /LPF (0-2); Ketones Trace (Negative); Leukocyte Esterase Negative (Negative); Nitrite Negative (Negative); Protein,Urine Dip Trace (Negative); RBC 21-50 /HPF (0-5); Specific Gravity 1.025 (1.005-1.030); WBC 0-2 /HPF (0-5)
[2023-05-31 13:27] LABS: ADD URINE CULTURE? YES (NO)
[2023-05-31 13:34] LABS: ALBUMIN 4.9 g/dL (3.5-5.0); BILIRUBIN,TOTAL 0.8 mg/dL (0.2-1.3); Creatinine 1 0.72 mg/dL (0.66-1.25); EST GLOMERULAR FILTRATION RATE 109.2 ML/MIN; Potassium 4.5 mmol/L (3.5-5.1); Total Protein 8.9 g/dL (6.3-8.2)
[2023-05-31] MEDS ORDERED: Zofran 4 MG/2 ML VIAL ONE ×2 (13:50→16:09)
[2023-05-31] MEDS ORDERED: MORPHINE SULFATE 4 MG INJ ONE (13:50)
[2023-05-31] MEDS ORDERED: Sodium Chloride 0.9% 1000 ML 1,000 ML ONE (13:50)
--- NOTE | 2023-05-31 13:58 | XRAY ---
Indication: Abdomen pain. Status post cholecystectomy 2 weeks. Multiple contiguous axial images obtained through the abdomen and pelvis without contrast. Comparison: May 15, 2023 Lung bases again demonstrate bilateral dependent atelectasis. Tiny right base calcified granuloma not previously included in [id number]. Heart is not enlarged. Stable small hiatal hernia. Noncontrasted stomach and bowel loops appear nonobstructed. Again mild diffuse scattered colonic fecal debris throughout, more than before. Interval cholecystectomy. No free fluid/air. Stable fatty-replaced pancreas and a few tiny splenic calcified granulomas. Remaining liver, pancreas, spleen, adrenal glands, kidneys, ureters, bladder, and aorta are unremarkable for noncontrast exam. Osseous structures intact. Impression: 1. Worsening mild diffuse fecal stasis. 2. Status post cholecystectomy without complications. 3. Again chronic findings including hiatal hernia and old granulomatous disease.
--- NOTE | 2023-05-31 14:30 | XRAY ---
Indication: Pain. Status post cholecystomy 2 weeks. Two-dimensional right upper quadrant abdominal sonogram performed. Impression: None Pancreas not well-seen due to overlying bowel gas. Gallbladder surgically absent without abnormal fluid collection. Common bile duct measures 6.1 mm. No intrahepatic biliary distention. Remaining visualized liver and right kidney are sonographically unremarkable. Right kidney measures 11.6 x 4.6 x 5.2 cm. Impression: Nonvisualization pancreas. Cholecystectomy without complications. Remaining right upper quadrant sonogram negative.
--- NOTE | 2023-05-31 15:01 | ERPHSYRPT ---
- History of Present Illness Time Seen by Provider: 05/31/23 12:40 Historian: patient Exam Limitations: no limitations Patient Subjective Stated Complaint: pt c/o of all over abdominal pain, pt had his gallbladder removed approx [address] Scott told him to come here and see if a stone is stuck in the bile duct Triage Nursing Assessment: Pt brought to the ER by his , seth mckeon, rates pain as 10/10 in upper abdomen, had gall bladder removed a couple of weeks ago and was doing fine up until a couple of days ago, decreased appetite, N&V, denies issues with bowels, pulses normal, skin n/w/d, gallbladder incisions healing well, appears to be in moderate pain Physician History: Patient 53-year-old male postop laparoscopic cholecystectomy presents to our ED as a referral from his general surgeon, Dr. Mendez, for evaluation of diffuse abdominal pain. Patient had been well up until today. Patient complains of generalized abdominal pain however more so in the lower abdomen. Pain described as an ache. No radiation. Pain worse with palpation. Pain improves somewhat with rest. No associated nausea or vomiting however patient has loss of appetite. No trauma. No fever. Symptoms are moderate to severe in intensity. at bedside. They voiced no other complaints or concerns at this time. Portions of this note were created with voice recognition technology. There may be grammatical, spelling, punctuation or sound alike errors Timing/Duration: today Activities at Onset: none Quality: aching Abdominal Pain Onset Location: generalized abdomen Pain Radiation: no radiation Severity of Pain-Max: severe Severity of Pain-Current: moderate Modifying Factors: Improves With: nothing Associated Symptoms: denies symptoms Previous symptoms: same symptoms as today Allergies/Adverse Reactions: No Known Drug Allergies Allergy (Verified 05/31/23 12:31) Home Medications: Multivitamin [Multi-Vitamin Daily] 1 tab PO DAILY 05/15/23 [History] Hydrocodone/Acetaminophen [Hydrocodone-Acetamin 10-325 mg] 1 tablet PO QID 05/31/23 [History] Hx Tetanus, Diphtheria Vaccination/Date Given: No Hx Influenza Vaccination/Date Given: No Hx Pneumococcal Vaccination/Date Given: No Travel Risk - International Travel Have you traveled outside of the country in past 3 weeks: No - Coronavirus Screening Are you exhibiting any of the following symptoms?: No Close contact with a COVID-19 positive Pt in past 14-21 Days: No - Vaccine Status Have you recieved a Covid-19 vaccination: No Auto Claim Representative: Pfizer - Vaccination Dates Date of 2cond Vaccination (if applicable): 2021 - Review of Systems Constitutional: No Symptoms, No Fever, No Chills Eyes: No Symptoms Ears, Nose, & Throat: No Symptoms Respiratory: No Symptoms, No Cough, No Dyspnea Cardiac: No Symptoms, No Chest Pain, No Edema, No Syncope Abdominal/Gastrointestinal: No Symptoms, No Abdominal Pain, No Nausea, No Vomiting, No Diarrhea Genitourinary Symptoms: No Symptoms, No Dysuria Musculoskeletal: No Symptoms, No Back Pain, No Neck Pain Skin: No Symptoms, No Rash Neurological: No Symptoms, No Dizziness, No Focal Weakness, No Sensory Changes Psychological: No Symptoms Endocrine: No Symptoms Hematologic/Lymphatic: No Symptoms Immunological/Allergic: No Symptoms All Other Systems: Reviewed and Negative - Past Medical History Pertinent Past Medical History: Yes Neurological History: No Pertinent History ENT History: No Pertinent History Cardiac History: No Pertinent History Respiratory History: No Pertinent History Endocrine Medical History: No Pertinent History Musculoskeletal History: Arthritis GI Medical History: Gallbladder Disease, Pancreatitis History: Other Psycho-Social History: No Pertinent History Male Reproductive Disorders: No Pertinent History Other Medical History: KIDNEY STONES - Past Surgical History Past Surgical History: Yes Gastrointestinal: Cholecystectomy Other Surgical History: knee surgery - Social History Smoking Status: Never smoker Exposure to second hand smoke: No Drug Use: none Patient Lives Alone: No - Nursing Vital Signs Nursing Vital Signs: Initial Vital Signs Temperature 97.3 F 05/31/23 12:20 Pulse Rate 60 05/31/23 12:20 Blood Pressure 131/84 05/31/23 12:20 O2 Sat by Pulse Oximetry 100 05/31/23 12:20 Pain Scale Pain Intensity 9 - Physical Exam General Appearance: no apparent distress, alert Eye Exam: PERRL/EOMI, eyes nml inspection Ears, Nose, Throat Exam: normal ENT inspection, pharynx normal, moist mucous membranes Neck Exam: normal inspection, non-tender, supple, full range of motion Respiratory Exam: normal breath sounds, lungs clear, airway intact, No respiratory distress Cardiovascular Exam: regular rate/rhythm, normal heart sounds, normal peripheral pulses Gastrointestinal/Abdomen Exam: soft, tenderness (Diffuse abdominal tenderness more so in the lower abdomen), No mass Back Exam: normal inspection, normal range of motion, No CVA tenderness, No vertebral tenderness Extremity Exam: normal inspection, normal range of motion, pelvis stable Neurologic Exam: alert, oriented x 3, cooperative, normal mood/affect, nml cerebellar function, sensation nml, No motor deficits Skin Exam: normal color, warm, dry SpO2 Interpretation: normal SpO2: 98 O2 Delivery: Room Air - Course Nursing assessment & vital signs reviewed: Yes - Radiology Ultrasound Exam Gallbladder Ultrasound: tele radiology report (Evidence of cholecystectomy. Otherwise unremarkable) Ordered Tests: Active Orders 24 hr Category Date Time Status IV Insertion STAT Care 05/31/23 13:10 Active ABDOMEN AND PELVIS W/0 CONTRAS [CT] Stat Exams 05/31/23 13:11 Completed ABDOMINAL-LIMITED [US] Stat Exams 05/31/23 13:23 Completed CBC W DIFF Stat Lab 05/31/23 13:17 Completed CMP Stat Lab 05/31/23 13:17 Completed CULTURE,URINE Stat Lab 05/31/23 13:17 Received LIPASE Stat Lab 05/31/23 13:17 Completed TROPONIN Q4H Lab 05/31/23 13:17 Completed UA W/RFX UR CULTURE Stat Lab 05/31/23 13:17 Completed Medication Summary Discontinued Medications Generic Name Dose Route Start Last Admin Trade Name Freq PRN Reason Stop Dose Admin Hydromorphone HCl 0.5 mg 05/31/23 16:00 05/31/23 16:15 Hydromorphone 1 Mg/1ml Inj IV 05/31/23 16:01 0.5 mg STAT ONE Administration Hydromorphone HCl Confirm 05/31/23 16:10 Hydromorphone 1 Mg/1ml Inj Administered 05/31/23 16:11 Dose 1 mg .ROUTE .STK-MED ONE Hydromorphone HCl 0.5 mg 05/31/23 20:03 05/31/23 20:12 Hydromorphone 1 Mg/1ml Inj IV 05/31/23 20:04 0.5 mg STAT ONE Administration Hydromorphone HCl Confirm 05/31/23 20:08 Hydromorphone 1 Mg/1ml Inj Administered 05/31/23 20:09 Dose 1 mg .ROUTE .STK-MED ONE Sodium Chloride 1,000 mls @ 999 mls/hr 05/31/23 13:10 05/31/23 15:05 Sodium Chloride 0.9% 1000 Ml IV 05/31/23 14:10 Infused .Q1H1M STA Infusion Sodium Chloride Confirm 05/31/23 13:50 Sodium Chloride 0.9% 1000 Ml Administered 05/31/23 13:51 Dose 1,000 mls @ ud .ROUTE .STK-MED ONE Cefoxitin Sodium 1 g in 50 mls @ 100 mls/hr 05/31/23 15:56 05/31/23 17:14 Mefoxin 1 Gm/ D5w 50 Ml IV 05/31/23 16:25 Infused STAT STA Infusion Morphine Sulfate 4 mg 05/31/23 13:10 05/31/23 13:54 Morphine Sulfate 4 Mg/Ml Injection IV 05/31/23 13:11 4 mg STAT ONE Administration Morphine Sulfate Confirm 05/31/23 13:50 Morphine Sulfate 4 Mg/Ml Injection Administered 05/31/23 13:51 Dose 4 mg .ROUTE .STK-MED ONE Ondansetron HCl 4 mg 05/31/23 13:10 05/31/23 13:53 Ondansetron Hcl 4 Mg/2 Ml Vial IV 05/31/23 13:11 4 mg STAT ONE Administration Ondansetron HCl Confirm 05/31/23 13:50 Ondansetron Hcl 4 Mg/2 Ml Vial Administered 05/31/23 13:51 Dose 4 mg .ROUTE .STK-MED ONE Ondansetron HCl 4 mg 05/31/23 16:00 05/31/23 16:14 Ondansetron Hcl 4 Mg/2 Ml Vial IV 05/31/23 16:01 4 mg STAT ONE Administration Ondansetron HCl Confirm 05/31/23 16:09 Ondansetron Hcl 4 Mg/2 Ml Vial Administered 05/31/23 16:10 Dose 4 mg .ROUTE .STK-MED ONE Prochlorperazine Edisylate 10 mg 05/31/23 20:04 05/31/23 20:12 Prochlorperazine Edisylate 10 Mg/2 Ml Vial IV 05/31/23 20:05 10 mg STAT ONE Administration Prochlorperazine Edisylate Confirm 05/31/23 20:09 Prochlorperazine Edisylate 10 Mg/2 Ml Vial Administered 05/31/23 20:10 Dose 10 mg .ROUTE .STK-MED ONE Lab/Rad Data: Laboratory Result Diagrams 05/31/23 13:17 05/31/23 13:17 Laboratory Results 05/31/23 05/31/23 05/31/23 Range/Units 13:17 13:17 13:17 WBC (4.0-10.5) x10^3/uL RBC (4.1-5.6) x10^6/uL Hgb (12.5-18.0) g/dL Hct (42-50) % MCV (78-100) fL MCH (26-32) pg MCHC (32-36) g/dL RDW (11.5-14.0) % Plt Count (150-450) x10^3/uL MPV (7.5-11.0) fL Gran % (36.0-66.0) % Immature Gran % (Auto) (0.00-0.4) % Nucleat RBC Rel Count (0.00-0.1) % Eos # (Auto) (0-0.5) x10^3/uL Immature Gran # (Auto) (0.00-0.03) x10^3u/L Absolute Lymphs (auto) (1.0-4.6) x10^3/uL Absolute Monos (auto) (0.0-1.3) x10^3/uL Absolute Nucleated RBC (0.00-0.01) x10^3u/L Lymphocytes % (24.0-44.0) % Monocytes % (0.0-12.0) % Eosinophils % (0.00-5.0) % Basophils % (0.0-0.4) % Absolute Granulocytes (1.4-6.9) x10^3/uL Basophils # (0-0.4) x10^3/uL Sodium 136 L (137-145) mmol/L Potassium 4.5 (3.5-5.1) mmol/L Chloride 100 (98-107) mmol/L Carbon Dioxide 24 (22-30) mmol/L Anion Gap 16.0 H (5-15) MEQ/L BUN 15 (9-20) mg/dL Creatinine 0.72 (0.66-1.25) mg/dL Estimated GFR 109.2 ML/MIN Glucose 124 H (74-106) mg/dL Calcium 10.0 (8.4-10.2) mg/dL Total Bilirubin 0.80 (0.2-1.3) mg/dL AST 34 (17-59) U/L ALT 41 (0-50) U/L Alkaline Phosphatase 208 H (38-126) U/L Troponin I < 0.012 (0.000-0.034) ng/mL Serum Total Protein 8.9 H (6.3-8.2) g/dL Albumin 4.9 (3.5-5.0) g/dL Lipase 2078 H (23-300) U/L Urine Color Yellow (Yellow) Urine Appearance Clear (Clear) Urine pH 8.0 (4.6-8.0) Ur Specific [place] 1.025 (1.005-1.030) Urine Protein Trace A (Negative) Urine Glucose (UA) Negative (Negative) mg/dL Urine Ketones Trace A (Negative) Urine Blood Moderate A (Negative) Urine Nitrite Negative (Negative) Urine Bilirubin Negative (Negative) Urine Urobilinogen 1.0 A (0.2) mg/dL Ur Leukocyte Esterase Negative (Negative) U Hyaline Cast (Auto) NONE SEEN (0-2) /LPF Urine Microscopic RBC 21-50 A (0-5) /HPF Urine Microscopic WBC 0-2 (0-5) /HPF Ur Epithelial Cells None Seen (None Seen) /HPF Urine Bacteria None Seen (None Seen) /HPF Urine Culture Reflexed YES (NO) 05/31/23 Range/Units 13:17 WBC 15.9 H (4.0-10.5) x10^3/uL RBC 4.84 (4.1-5.6) x10^6/uL Hgb 15.3 (12.5-18.0) g/dL Hct 45.9 (42-50) % MCV 94.8 (78-100) fL MCH 31.6 (26-32) pg MCHC 33.3 (32-36) g/dL RDW 12.2 (11.5-14.0) % Plt Count 356 (150-450) x10^3/uL MPV 9.4 (7.5-11.0) fL Gran % 86.6 H (36.0-66.0) % Immature Gran % (Auto) 0.6 H (0.00-0.4) % Nucleat RBC Rel Count 0.0 (0.00-0.1) % Eos # (Auto) 0.09 (0-0.5) x10^3/uL Immature Gran # (Auto) 0.10 H (0.00-0.03) x10^3u/L Absolute Lymphs (auto) 1.37 (1.0-4.6) x10^3/uL Absolute Monos (auto) 0.50 (0.0-1.3) x10^3/uL Absolute Nucleated RBC 0.00 (0.00-0.01) x10^3u/L Lymphocytes % 8.6 L (24.0-44.0) % Monocytes % 3.2 (0.0-12.0) % Eosinophils % 0.6 (0.00-5.0) % Basophils % 0.4 (0.0-0.4) % Absolute Granulocytes 13.73 H (1.4-6.9) x10^3/uL Basophils # 0.07 (0-0.4) x10^3/uL Sodium (137-145) mmol/L Potassium (3.5-5.1) mmol/L Chloride (98-107) mmol/L Carbon Dioxide (22-30) mmol/L Anion Gap (5-15) MEQ/L BUN (9-20) mg/dL Creatinine (0.66-1.25) mg/dL Estimated GFR ML/MIN Glucose (74-106) mg/dL Calcium (8.4-10.2) mg/dL Total Bilirubin (0.2-1.3) mg/dL AST (17-59) U/L ALT (0-50) U/L Alkaline Phosphatase (38-126) U/L Troponin I (0.000-0.034) ng/mL Serum Total Protein (6.3-8.2) g/dL Albumin (3.5-5.0) g/dL Lipase (23-300) U/L Urine Color (Yellow) Urine Appearance (Clear) Urine pH (4.6-8.0) Ur Specific [place] (1.005-1.030) Urine Protein (Negative) Urine Glucose (UA) (Negative) mg/dL Urine Ketones (Negative) Urine Blood (Negative) Urine Nitrite (Negative) Urine Bilirubin (Negative) Urine Urobilinogen (0.2) mg/dL Ur Leukocyte Esterase (Negative) U Hyaline Cast (Auto) (0-2) /LPF Urine Microscopic RBC (0-5) /HPF Urine Microscopic WBC (0-5) /HPF Ur Epithelial Cells (None Seen) /HPF Urine Bacteria (None Seen) /HPF Urine Culture Reflexed (NO) - Progress Progress: improved Progress Note: Case discussed with at 3:55 PM. He advised transfer to higher level of care for an ERCP. He also recommended administering a dose of cefoxitin to prevent cholangitis we are currently calling [facility] for possible transfer. Patient and updated 05/31/23 16:04 Case discussed with general surgeon Dr. Garcia from [facility]. Dr. Garcia accepts patient at 4:35 PM. However he states that I will speak to the hospitalist before patient can be transferred. 05/31/23 16:36 Case discussed with hospitalist at Dr. Eldridge who accepts transfer at 4:44 PM 05/31/23 16:48 Patient a 53-year-old male presents to our ED for evaluation of abdominal pain. Patient is 2 weeks postop cholecystectomy. Work-up reveals a leukocytosis, elevated lipase and a common bile duct stone. Case discussed with patient's surgeon who advised transfer. I spoke to general surgeon at [facility] as well as hospitalist at [facility]. Patient was accepted. Patient is now going to be transferred ported. Patient required several doses of Dilaudid and antiemetics for pain control and nausea. Portions of this note were created with voice recognition technology. There may be grammatical, spelling, punctuation or sound alike errors Complexity of problems addressed is high, threat to bodily function Complex of data reviewed and analyzed is extensive. Test ordered test reviewed. I spoke to numerous specialist regarding patient's condition and the need for transfer. Test ordered test reviewed. Results analyzed and correlated clinically. Risk of complication and a risk morbidity/mortality patient management is high. Patient received IV controlled medications requiring monitoring. Patient also requires transfer/hospitalization to higher level of care. Vital stable. Time spent to transfer patient is approximately 20 minutes. Plan of care established for shared decision making. Portions of this note were created with voice recognition technology. There may be grammatical, spelling, punctuation or sound alike errors 05/31/23 20:52 Counseled pt/family regarding: lab results, diagnosis, rad results - Departure Departure Disposition: Transfer Clinical Impression: Abdominal pain, Leukocytosis, Elevated lipase, Hematuria, Choledocholithiasis, Constipation, Hiatal hernia, Lung granuloma, Gallstone pancreatitis Condition: Stable Critical Care Time: No Referrals: LORY LEE MD [Primary Care Provider] - Follow up/PCP as directed
[2023-05-31] MEDS ORDERED: MEFOXIN 1 Gm/ D5W 50 Ml** 1 G/50 ML ML IV STA (15:56)
[2023-05-31] MEDS ORDERED: Hydromorphone 1 mg/ml Injection IV ONE ×2 (16:00→20:03)
[2023-05-31] MEDS ORDERED: Hydromorphone 1 mg/ml Injection ONE ×2 (16:10→20:08)
[2023-05-31 17:27] VITALS: RESP 20
[2023-05-31] MEDS ORDERED: Compazine 10 MG/2 ML IV ONE (20:04)
[2023-05-31] MEDS ORDERED: Compazine 10 MG/2 ML ONE (20:09)
[2023-05-31 20:37] VITALS: BP 118/68; PULSE 69
[2023-05-31 20:56] VITALS: O2SAT 98
== END 2023-05-31 20:58 | disposition short-term general hospital (02) ==
LOC: ED 12:17
DX: K80.50 Calculus of bile duct without cholangitis or cholecystitis without obstruction (principal); K85.10 Biliary acute pancreatitis without necrosis or infection; R10.84 Generalized abdominal pain; D72.829 Elevated white blood cell count, unspecified; R74.8 Abnormal levels of other serum enzymes; R31.9 Hematuria, unspecified; K59.00 Constipation, unspecified; K44.9 Diaphragmatic hernia without obstruction or gangrene; J84.10 Pulmonary fibrosis, unspecified; Z79.891 Long term (current) use of opiate analgesic
CPT/HCPCS: 36000; 36415; 74176; 76705; 80053; 81001; 83690; 84484; 85025; 87086; 96365; 96374; 96375; 96376; 99285; J0694; J1170; J2270; J2405

== ENCOUNTER 2023-07-04 08:37 | Observation (INO) | payer BC ==
[2023-07-04] MEDS ORDERED: Hydromorphone 1 mg/ml Injection IV ONE ×3 (08:45→13:00)
[2023-07-04] MEDS ORDERED: Zofran 4 MG/2 ML VIAL IV ONE (08:45)
[2023-07-04] MEDS ORDERED: Sodium Chloride 0.9% 1000 ML 1,000 ML IV STA ×2 (08:45→13:00)
[2023-07-04] MEDS ORDERED: Zofran 4 MG/2 ML VIAL ONE (08:55)
[2023-07-04] MEDS ORDERED: Hydromorphone 1 mg/ml Injection ONE ×3 (08:55→13:03)
[2023-07-04] MEDS ORDERED: Sodium Chloride 0.9% 1000 ML 1,000 ML ONE ×2 (08:55→13:04)
--- NOTE | 2023-07-04 09:28 | XRAY ---
Indication: Pain. Status post pancreas stent removal. Comparison: May 15, 2023 Portable chest remains inflated and clear. Heart not enlarged. No new/acute findings.
[2023-07-04 09:32] LABS: Absolute Neutrophil Ct (ANC) 11.17 x10^3/uL (1.4-6.9); BASOPHIL % 0.4 % (0.0-0.4); Basophil (Absolute #) 0.06 x10^3/uL (0-0.4); Eosinophil % 1.2 % (0.00-5.0); Eosinophil (Absolute #) 0.17 x10^3/uL (0-0.5); Hematocrit 39.1 % (42-50); Hemoglobin 13.5 g/dL (12.5-18.0); IMMATURE GRAN # 0.06 x10^3u/L (0.00-0.03); IMMATURE GRAN % 0.4 % (0.00-0.4); Lymphocytes % 14.5 % (24.0-44.0); Mean Cell Volume 91.6 fL (78-100); Mean Corpuscular Hemoglobin 31.6 pg (26-32); Mean Corpuscular Hgb Concent. 34.5 g/dL (32-36); Mean Platelet Volume 9.6 fL (7.5-11.0); Monocytes % 6.2 % (0.0-12.0); Neutrophil % 77.3 % (36.0-66.0); Platelet Count 256 x10^3/uL (150-450); Red Blood Count 4.27 x10^6/uL (4.1-5.6); Red Cell Distribution Width 12.5 % (11.5-14.0); White Blood Count 14.5 x10^3/uL (4.0-10.5)
[2023-07-04 09:46] LABS: INR 0.97 (0.8-3.0); PROTIME 10.6 SECONDS (9.4-12.5)
[2023-07-04 09:55] LABS: ALBUMIN 4.4 g/dL (3.5-5.0); ANION GAP 13.7 MEQ/L (5-15); BILIRUBIN,TOTAL 0.8 mg/dL (0.2-1.3); Calcium 9.7 mg/dL (8.4-10.2); Creatinine 1 0.68 mg/dL (0.66-1.25); EST GLOMERULAR FILTRATION RATE 111.2 ML/MIN; Potassium 3.9 mmol/L (3.5-5.1)
[2023-07-04] MEDS ORDERED: Reglan 10 MG/2 ML IV ONE (10:36)
[2023-07-04] MEDS ORDERED: Reglan 10 MG/2 ML ONE (10:42)
--- NOTE | 2023-07-04 10:50 | XRAY ---
Indication: Abdomen pain following a greater extent removal. Multiple contiguous axial images obtained through the abdomen and pelvis using 80 cc Isovue 370 contrast. Comparison: May 31, 2023. Lung bases again demonstrates dependent atelectasis and tiny right base calcified granuloma. Heart not enlarged. Stable small hiatal hernia. Noncontrasted stomach and bowel loops again nonobstructed. There remains mild diffuse scattered colonic fecal debris. Stable 5 mm common bile duct calculus at the level of ampulla without abnormal computer systems security administrator distention. Again fatty-replaced pancreas and cholecystotomy. No free fluid/air. Remaining liver, pancreas, spleen, adrenal glands, kidneys, ureters, bladder, and aorta are unremarkable. Impression: Again small hiatal hernia, 5 mm distal choledochal stone, and mild diffuse fecal stasis. No new intra-abdominal/pelvic abnormalities on this contrasted exam.
[2023-07-04 11:15] LABS: Appearance Clear (Clear); Bacteria None Seen /HPF (None Seen); Bilirubin Negative (Negative); Blood Trace (Negative); Epithelial Cells None Seen /HPF (None Seen); Glucose, Urine Negative (Negative); Hyaline Casts NONE SEEN /LPF (0-2); Ketones Negative (Negative); Leukocyte Esterase Negative (Negative); Nitrite Negative (Negative); Protein,Urine Dip Negative (Negative); Urobilinogen 0.2 mg/dL (0.2); WBC 0-2 /HPF (0-5)
[2023-07-04 11:19] LABS: ADD URINE CULTURE? NO (NO)
--- NOTE | 2023-07-04 13:08 | ERPHSYRPT ---
- History of Present Illness Time Seen by Provider: 07/04/23 09:00 Historian: patient, family Exam Limitations: no limitations Patient Subjective Stated Complaint: pt here for abd pain since last night, pt had an ERCP about 2 weeks ago, he states he had some bleeding during procedure. co chills, nausea and vomiting, Triage Nursing Assessment: pt arrived per wc, resp labored, appears in pain, skin w/d/p, abd soft but tender to touch, no edema noted Physician History: Patient is a 53-year-old white male who presents with severe epigastric abdominal pain radiating through to the back. He underwent a cholecystectomy some weeks ago and had a complication of a common duct stone. He was referred for ERCP to to a Dr. Gill. He had a stent placed a month ago after ERCP the stent was removed last Tuesday he did well until Tuesday night when he developed severe pain nausea and vomiting. Timing/Duration: yesterday Activities at Onset: none Quality: cramping Abdominal Pain Onset Location: epigastric Pain Radiation: back Associated Symptoms: nausea, vomiting Allergies/Adverse Reactions: No Known Drug Allergies Allergy (Verified 07/04/23 08:40) Home Medications: Multivitamin [Multi-Vitamin Daily] 1 tab PO DAILY 05/15/23 [History] Hydrocodone/Acetaminophen [Hydrocodone-Acetamin 10-325 mg] 1 tablet PO QID 05/31/23 [History] Hx Tetanus, Diphtheria Vaccination/Date Given: No Hx Influenza Vaccination/Date Given: No Hx Pneumococcal Vaccination/Date Given: No Immunizations Up to Date: Yes Travel Risk - International Travel Have you traveled outside of the country in past 3 weeks: No - Coronavirus Screening Are you exhibiting any of the following symptoms?: No - Vaccine Status Have you recieved a Covid-19 vaccination: No 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: [id number] - Vaccination Dates Date of 2cond Vaccination (if applicable): 2021 - Review of Systems Constitutional: No Fever, No Chills Eyes: No Symptoms Ears, Nose, & Throat: No Symptoms Respiratory: No Cough, No Dyspnea Cardiac: No Chest Pain, No Edema, No Syncope Abdominal/Gastrointestinal: No Abdominal Pain, No Nausea, No Vomiting, No Diarrhea Genitourinary Symptoms: No Dysuria Musculoskeletal: No Back Pain, No Neck Pain Skin: No Rash Neurological: No Dizziness, No Focal Weakness, No Sensory Changes Psychological: No Symptoms Endocrine: No Symptoms All Other Systems: Reviewed and Negative - Past Medical History Pertinent Past Medical History: Yes Neurological History: No Pertinent History ENT History: No Pertinent History Cardiac History: No Pertinent History Respiratory History: No Pertinent History Endocrine Medical History: No Pertinent History Musculoskeletal History: Arthritis GI Medical History: Gallbladder Disease, Pancreatitis History: Other Psycho-Social History: No Pertinent History Male Reproductive Disorders: No Pertinent History Other Medical History: KIDNEY STONES - Past Surgical History Past Surgical History: Yes Gastrointestinal: Cholecystectomy Other Surgical History: knee surgery, bile duck stent -ercp - Social History Smoking Status: Never smoker Exposure to second hand smoke: No Drug Use: none Patient Lives Alone: No - Nursing Vital Signs Nursing Vital Signs: Initial Vital Signs Temperature 97.3 F 07/04/23 08:41 Pulse Rate 55 L 07/04/23 08:41 Respiratory Rate 26 H 07/04/23 08:41 Blood Pressure 140/83 07/04/23 08:41 O2 Sat by Pulse Oximetry 100 07/04/23 08:41 Pain Scale Pain Intensity 0 - Physical Exam General Appearance: moderate distress Gastrointestinal/Abdomen Exam: tenderness, guarding, rebound Back Exam: normal inspection, normal range of motion, No CVA tenderness, No vertebral tenderness Extremity Exam: normal inspection, normal range of motion, pelvis stable Neurologic Exam: alert, oriented x 3, cooperative, normal mood/affect, nml cerebellar function, sensation nml, No motor deficits Skin Exam: normal color, warm, dry SpO2 Interpretation: normal SpO2: 96 O2 Delivery: Room Air - Course Nursing assessment & vital signs reviewed: Yes EKG Interpreted by Me: RATE ([id number]), Sinus Mehdi, NORMAL AXIS, NORMAL QRS, NORMAL ST-T - CT Exams Abdomen/Pelvis CT Interpretation: Tele-radiologist Report Ordered Tests: Active Orders 24 hr Category Date Time Status EKG-ER Only STAT Care 07/04/23 08:45 Active IV Insertion STAT Care 07/04/23 08:45 Active ABDOMEN AND PELVIS W CONTRAST [CT] Stat Exams 07/04/23 08:46 Completed CHEST 1 VIEW (PORTABLE) Stat Exams 07/04/23 08:46 Completed AMYLASE Stat Lab 07/04/23 09:15 Completed BLOOD CULTURE Stat Lab 07/04/23 09:20 Ordered CBC W DIFF Stat Lab 07/04/23 09:15 Completed CMP Stat Lab 07/04/23 09:15 Completed LIPASE Stat Lab 07/04/23 09:15 Completed Lactic Acid Stat Lab 07/04/23 09:10 Completed PROTIME WITH INR Stat Lab 07/04/23 09:15 Completed TROPONIN Q4H Lab 07/04/23 09:15 Completed TROPONIN Q4H Lab 07/04/23 13:00 Ordered TROPONIN Q4H Lab 07/04/23 17:00 Ordered UA W/RFX UR CULTURE Stat Lab 07/04/23 10:48 Completed Medication Summary Generic Name Dose Route Start Last Admin Trade Name Alex PRN Reason Stop Dose Admin Sodium Chloride 1,000 mls @ 999 mls/hr 07/04/23 13:00 Sodium Chloride 0.9% 1000 Ml IV 07/04/23 14:00 .Q1H1M STA Discontinued Medications Generic Name Dose Route Start Last Admin Trade Name Alex PRN Reason Stop Dose Admin Hydromorphone HCl 1 mg 07/04/23 08:45 07/04/23 09:01 Hydromorphone 1 Mg/1ml Inj IV 07/04/23 08:46 1 mg STAT ONE Administration Hydromorphone HCl Confirm 07/04/23 08:55 Hydromorphone 1 Mg/1ml Inj Administered 07/04/23 08:56 Dose 1 mg .ROUTE .STK-MED ONE Hydromorphone HCl 1 mg 07/04/23 10:35 07/04/23 10:43 Hydromorphone 1 Mg/1ml Inj IV 07/04/23 10:36 1 mg STAT ONE Administration Hydromorphone HCl Confirm 07/04/23 10:42 Hydromorphone 1 Mg/1ml Inj Administered 07/04/23 10:43 Dose 1 mg .ROUTE .STK-MED ONE Hydromorphone HCl 1 mg 07/04/23 13:00 Hydromorphone 1 Mg/1ml Inj IV 07/04/23 13:01 STAT ONE Sodium Chloride 1,000 mls @ 999 mls/hr 07/04/23 08:45 07/04/23 10:03 Sodium Chloride 0.9% 1000 Ml IV 07/04/23 09:45 Infused .Q1H1M STA Infusion Sodium Chloride Confirm 07/04/23 08:55 Sodium Chloride 0.9% 1000 Ml Administered 07/04/23 08:56 Dose 1,000 mls @ ud .ROUTE .STK-MED ONE Metoclopramide HCl 10 mg 07/04/23 10:36 07/04/23 10:43 Metoclopramide Hcl 10 Mg/2 Ml Vial IV 07/04/23 10:37 10 mg STAT ONE Administration Metoclopramide HCl Confirm 07/04/23 10:42 Metoclopramide Hcl 10 Mg/2 Ml Vial Administered 07/04/23 10:43 Dose 10 mg .ROUTE .STK-MED ONE Ondansetron HCl 4 mg 07/04/23 08:45 07/04/23 09:01 Ondansetron Hcl 4 Mg/2 Ml Vial IV 07/04/23 08:46 4 mg STAT ONE Administration Ondansetron HCl Confirm 07/04/23 08:55 Ondansetron Hcl 4 Mg/2 Ml Vial Administered 07/04/23 08:56 Dose 4 mg .ROUTE .STK-MED ONE Lab/Rad Data: Laboratory Result Diagrams 07/04/23 09:15 07/04/23 09:15 Laboratory Results 07/04/23 07/04/23 07/04/23 Range/Units 10:48 09:15 09:15 WBC (4.0-10.5) x10^3/uL RBC (4.1-5.6) x10^6/uL Hgb (12.5-18.0) g/dL Hct (42-50) % MCV (78-100) fL MCH (26-32) pg MCHC (32-36) g/dL RDW (11.5-14.0) % Plt Count (150-450) x10^3/uL MPV (7.5-11.0) fL Gran % (36.0-66.0) % Immature Gran % (Auto) (0.00-0.4) % Nucleat RBC Rel Count (0.00-0.1) % Eos # (Auto) (0-0.5) x10^3/uL Immature Gran # (Auto) (0.00-0.03) x10^3u/L Absolute Lymphs (auto) (1.0-4.6) x10^3/uL Absolute Monos (auto) (0.0-1.3) x10^3/uL Absolute Nucleated RBC (0.00-0.01) x10^3u/L Lymphocytes % (24.0-44.0) % Monocytes % (0.0-12.0) % Eosinophils % (0.00-5.0) % Basophils % (0.0-0.4) % Absolute Granulocytes (1.4-6.9) x10^3/uL Basophils # (0-0.4) x10^3/uL PT 10.6 (9.4-12.5) SECONDS INR 0.97 (0.8-3.0) Sodium (137-145) mmol/L Potassium (3.5-5.1) mmol/L Chloride (98-107) mmol/L Carbon Dioxide (22-30) mmol/L Anion Gap (5-15) MEQ/L BUN (9-20) mg/dL Creatinine (0.66-1.25) mg/dL Estimated GFR ML/MIN Glucose (74-106) mg/dL Lactic Acid (0.4-2.0) Calcium (8.4-10.2) mg/dL Total Bilirubin (0.2-1.3) mg/dL AST (17-59) U/L ALT (0-50) U/L Alkaline Phosphatase (38-126) U/L Troponin I < 0.012 (0.000-0.034) ng/mL Serum Total Protein (6.3-8.2) g/dL Albumin (3.5-5.0) g/dL Amylase (30-110) U/L Lipase (23-300) U/L Urine Color Yellow (Yellow) Urine Appearance Clear (Clear) Urine pH 8.0 (4.6-8.0) Ur Specific [place] 1.010 (1.005-1.030) Urine Protein Negative (Negative) Urine Glucose (UA) Negative (Negative) mg/dL Urine Ketones Negative (Negative) Urine Blood Trace (Negative) Urine Nitrite Negative (Negative) Urine Bilirubin Negative (Negative) Urine Urobilinogen 0.2 (0.2) mg/dL Ur Leukocyte Esterase Negative (Negative) U Hyaline Cast (Auto) NONE SEEN (0-2) /LPF Urine Microscopic RBC 6-10 A (0-5) /HPF Urine Microscopic WBC 0-2 (0-5) /HPF Ur Epithelial Cells None Seen (None Seen) /HPF Urine Bacteria None Seen (None Seen) /HPF Urine Culture Reflexed NO (NO) 07/04/23 07/04/23 07/04/23 Range/Units 09:15 09:15 09:10 WBC 14.5 H (4.0-10.5) x10^3/uL RBC 4.27 (4.1-5.6) x10^6/uL Hgb 13.5 (12.5-18.0) g/dL Hct 39.1 L (42-50) % MCV 91.6 (78-100) fL MCH 31.6 (26-32) pg MCHC 34.5 (32-36) g/dL RDW 12.5 (11.5-14.0) % Plt Count 256 (150-450) x10^3/uL MPV 9.6 (7.5-11.0) fL Gran % 77.3 H (36.0-66.0) % Immature Gran % (Auto) 0.4 (0.00-0.4) % Nucleat RBC Rel Count 0.0 (0.00-0.1) % Eos # (Auto) 0.17 (0-0.5) x10^3/uL Immature Gran # (Auto) 0.06 H (0.00-0.03) x10^3u/L Absolute Lymphs (auto) 2.10 (1.0-4.6) x10^3/uL Absolute Monos (auto) 0.90 (0.0-1.3) x10^3/uL Absolute Nucleated RBC 0.00 (0.00-0.01) x10^3u/L Lymphocytes % 14.5 L (24.0-44.0) % Monocytes % 6.2 (0.0-12.0) % Eosinophils % 1.2 (0.00-5.0) % Basophils % 0.4 (0.0-0.4) % Absolute Granulocytes 11.17 H (1.4-6.9) x10^3/uL Basophils # 0.06 (0-0.4) x10^3/uL PT (9.4-12.5) SECONDS INR (0.8-3.0) Sodium 135 L (137-145) mmol/L Potassium 3.9 (3.5-5.1) mmol/L Chloride 104 (98-107) mmol/L Carbon Dioxide 21 L (22-30) mmol/L Anion Gap 13.7 (5-15) MEQ/L BUN 10 (9-20) mg/dL Creatinine 0.68 (0.66-1.25) mg/dL Estimated GFR 111.2 ML/MIN Glucose 119 H (74-106) mg/dL Lactic Acid 1.4 (0.4-2.0) Calcium 9.7 (8.4-10.2) mg/dL Total Bilirubin 0.80 (0.2-1.3) mg/dL AST 26 (17-59) U/L ALT 27 (0-50) U/L Alkaline Phosphatase 143 H (38-126) U/L Troponin I (0.000-0.034) ng/mL Serum Total Protein 8.0 (6.3-8.2) g/dL Albumin 4.4 (3.5-5.0) g/dL Amylase 358 H (30-110) U/L Lipase 1232 H (23-300) U/L Urine Color (Yellow) Urine Appearance (Clear) Urine pH (4.6-8.0) Ur Specific [place] (1.005-1.030) Urine Protein (Negative) Urine Glucose (UA) (Negative) mg/dL Urine Ketones (Negative) Urine Blood (Negative) Urine Nitrite (Negative) Urine Bilirubin (Negative) Urine Urobilinogen (0.2) mg/dL Ur Leukocyte Esterase (Negative) U Hyaline Cast (Auto) (0-2) /LPF Urine Microscopic RBC (0-5) /HPF Urine Microscopic WBC (0-5) /HPF Ur Epithelial Cells (None Seen) /HPF Urine Bacteria (None Seen) /HPF Urine Culture Reflexed (NO) - Progress Progress: unchanged, pain not gone completely Progress Note: 07/04/23 13:0Discussed the situation with Dr. Laurent at and he suggested simply admitting the patient here for pancreatic treatment he says he is most doubtful that there is an actual stone there but he has not seen the films. Plan is to talk to Dr. Holder to see if he is agreeable with that plan. Will see patient in: hospital (observation) Medical Desision Making - Independent Historian Additional History obtained from: Spouse - Discussion of managment Care discussed with:: hospitalist (Dr Holder) Reviewed:: Test results Agreed on:: Treatment plan Will see patient: in hospital - Diagnostic Testing Diagnostic test were ordered, analyzed, and reviewed by me: Yes Radiological Interpretation: Reviewed by me - Departure Departure Disposition: Observation Clinical Impression: Choledocholithiasis, Pancreatitis, Elevated lipase, Abdominal pain Condition: Stable Critical Care Time: No Referrals: LORY LEE MD [Primary Care Provider] - Follow up/PCP as directed
--- NOTE | 2023-07-04 14:26 | PCM.HP ---
History of Present Illness - Chief Complaint Chief Complaint: Pancreatitis Date: 07/04/23 History of Present Illness: is a 53 year old male with PMHX of arthritis, gallbladder disease, pancreatitis, kidney stones. He presented to the ER with severe epigastric a bdominal pain radiating through to the back. He underwent a cholecystectomy several weeks ago and had a complication of a common duct stone. He was referred for ERCP to to a Dr. Gill. He had a stent placed a month ago after ERCP the stent was removed last Tuesday he did well until Tuesday night when he developed severe pain nausea and vomiting. ER physician discussed the situation with Dr. Laurent at and he suggested simply admitting the patient here for pancreatic treatment he says he is most doubtful that there is an actual stone there but he has not seen the films. ER physician ordered and abd MRI w/o for further evaluation. Pt is in severe pain with even slight touch of abd. He continues to have N/V. Will continue IV fluids, Zofran, and dilaudid. - Review of Systems Constitutional: No Fever, No Chills Eyes: No Symptoms Ears, Nose, & Throat: No Symptoms Respiratory: No Cough, No Short Of Breath Cardiac: No Chest Pain, No Edema, No Syncope Abdominal/Gastrointestinal: Abdominal Pain, Nausea, Vomiting, No Diarrhea Genitourinary Symptoms: No Dysuria Musculoskeletal: No Back Pain, No Neck Pain Skin: No Rash Neurological: No Dizziness, No Focal Weakness, No Sensory Changes Psychological: No Symptoms Endocrine: No Symptoms Hematologic/Lymphatic: No Symptoms Immunological/Allergic: No Symptoms Medications & Allergies Home Medications: Home Medication List Multivitamin [Multi-Vitamin Daily] 1 tab PO DAILY 05/15/23 [History Confirmed 07/04/23] Hydrocodone/Acetaminophen [Hydrocodone-Acetamin 10-325 mg] 1 tablet PO QID 05/31/23 [History Confirmed 07/04/23] Allergies/Adverse Reactions: Allergies Allergy/AdvReac Type Severity Reaction Status Date / Time No Known Drug Allergies Allergy Verified 07/04/23 08:40 - Past Medical History Past Medical History: Yes Neurological History: No Pertinent History ENT History: No Pertinent History Cardiac History: No Pertinent History Respiratory History: No Pertinent History Endocrine Medical History: No Pertinent History Musculoskelatal History: Arthritis GI Medical History: Gallbladder Disease, Pancreatitis History: Other Pyscho-Social History: No Pertinent History Male Reproductive Disorders: No Pertinent History Comment: KIDNEY STONES - Past Surgical History Past Surgical History: Yes GI Surgical History: Cholecystectomy Other Surgical History: knee surgery, bile duck stent -ercp - Social History Smoking Status: Never smoker Exposure to second hand smoke: No Alcohol: None Drug Use: none - Physical Exam Vital Signs: Vital Signs - 24 hr Temp Pulse Resp BP BP Pulse Ox 07/04/23 13:16 96 07/04/23 13:00 56 L 6 L 125/75 96 07/04/23 12:45 55 L 12 123/69 96 07/04/23 12:30 57 L 13 124/73 97 07/04/23 12:15 58 L 13 122/72 97 07/04/23 12:00 54 L 12 117/70 97 07/04/23 11:45 57 L 12 115/67 99 07/04/23 11:30 58 L 11 L 115/66 98 07/04/23 11:15 64 13 110/66 97 07/04/23 11:07 61 13 112/67 96 07/04/23 10:15 57 L 14 135/69 96 07/04/23 10:00 50 L 14 120/68 96 07/04/23 09:45 50 L 18 130/71 07/04/23 09:30 47 L 2 L 127/69 98 07/04/23 09:20 47 L 4 L 97 07/04/23 09:16 48 L 0 L 07/04/23 09:00 45 L 10 L 137/76 94 L 07/04/23 08:41 97.3 F 55 L 26 H 140/83 100 General Appearance: no apparent distress, alert Neurologic Exam: alert, oriented x 3, cooperative, normal mood/affect, nml cerebellar function, nml station & gait, sensation nml, No motor deficits Eye Exam: PERRL/EOMI, eyes nml inspection Ears, Nose, Throat Exam: normal ENT inspection, TMs normal, pharynx normal, moist mucous membranes Neck Exam: normal inspection, non-tender, supple, full range of motion Respiratory Exam: normal breath sounds, lungs clear, No respiratory distress Cardiovascular Exam: regular rate/rhythm, normal heart sounds, normal peripheral pulses Gastrointestinal/Abdomen Exam: soft, normal bowel sounds, tenderness, guarding, No mass Back Exam: normal inspection, normal range of motion, No CVA tenderness, No vertebral tenderness Extremity Exam: normal inspection, normal range of motion, pelvis stable Skin Exam: normal color, warm, dry, No rash Lymphatic Exam: No adenopathy Results - Labs Lab/Micro Results: Lab Results-Last 24 Hours 07/04/23 07/04/23 07/04/23 Range/Units 09:10 09:15 09:15 WBC 14.5 H (4.0-10.5) x10^3/uL RBC 4.27 (4.1-5.6) x10^6/uL Hgb 13.5 (12.5-18.0) g/dL Hct 39.1 L (42-50) % MCV 91.6 (78-100) fL MCH 31.6 (26-32) pg MCHC 34.5 (32-36) g/dL RDW 12.5 (11.5-14.0) % Plt Count 256 (150-450) x10^3/uL MPV 9.6 (7.5-11.0) fL Gran % 77.3 H (36.0-66.0) % Immature Gran % (Auto) 0.4 (0.00-0.4) % Nucleat RBC Rel Count 0.0 (0.00-0.1) % Eos # (Auto) 0.17 (0-0.5) x10^3/uL Immature Gran # (Auto) 0.06 H (0.00-0.03) x10^3u/L Absolute Lymphs (auto) 2.10 (1.0-4.6) x10^3/uL Absolute Monos (auto) 0.90 (0.0-1.3) x10^3/uL Absolute Nucleated RBC 0.00 (0.00-0.01) x10^3u/L Lymphocytes % 14.5 L (24.0-44.0) % Monocytes % 6.2 (0.0-12.0) % Eosinophils % 1.2 (0.00-5.0) % Basophils % 0.4 (0.0-0.4) % Absolute Granulocytes 11.17 H (1.4-6.9) x10^3/uL Basophils # 0.06 (0-0.4) x10^3/uL PT (9.4-12.5) SECONDS INR (0.8-3.0) Sodium 135 L (137-145) mmol/L Potassium 3.9 (3.5-5.1) mmol/L Chloride 104 (98-107) mmol/L Carbon Dioxide 21 L (22-30) mmol/L Anion Gap 13.7 (5-15) MEQ/L BUN 10 (9-20) mg/dL Creatinine 0.68 (0.66-1.25) mg/dL Estimated GFR 111.2 ML/MIN Glucose 119 H (74-106) mg/dL Lactic Acid 1.4 (0.4-2.0) Calcium 9.7 (8.4-10.2) mg/dL Total Bilirubin 0.80 (0.2-1.3) mg/dL AST 26 (17-59) U/L ALT 27 (0-50) U/L Alkaline Phosphatase 143 H (38-126) U/L Troponin I (0.000-0.034) ng/mL Serum Total Protein 8.0 (6.3-8.2) g/dL Albumin 4.4 (3.5-5.0) g/dL Amylase 358 H (30-110) U/L Lipase 1232 H (23-300) U/L Urine Color (Yellow) Urine Appearance (Clear) Urine pH (4.6-8.0) Ur Specific [place] (1.005-1.030) Urine Protein (Negative) Urine Glucose (UA) (Negative) mg/dL Urine Ketones (Negative) Urine Blood (Negative) Urine Nitrite (Negative) Urine Bilirubin (Negative) Urine Urobilinogen (0.2) mg/dL Ur Leukocyte Esterase (Negative) U Hyaline Cast (Auto) (0-2) /LPF Urine Microscopic RBC (0-5) /HPF Urine Microscopic WBC (0-5) /HPF Ur Epithelial Cells (None Seen) /HPF Urine Bacteria (None Seen) /HPF Urine Culture Reflexed (NO) 07/04/23 07/04/23 07/04/23 Range/Units 09:15 09:15 10:48 WBC (4.0-10.5) x10^3/uL RBC (4.1-5.6) x10^6/uL Hgb (12.5-18.0) g/dL Hct (42-50) % MCV (78-100) fL MCH (26-32) pg MCHC (32-36) g/dL RDW (11.5-14.0) % Plt Count (150-450) x10^3/uL MPV (7.5-11.0) fL Gran % (36.0-66.0) % Immature Gran % (Auto) (0.00-0.4) % Nucleat RBC Rel Count (0.00-0.1) % Eos # (Auto) (0-0.5) x10^3/uL Immature Gran # (Auto) (0.00-0.03) x10^3u/L Absolute Lymphs (auto) (1.0-4.6) x10^3/uL Absolute Monos (auto) (0.0-1.3) x10^3/uL Absolute Nucleated RBC (0.00-0.01) x10^3u/L Lymphocytes % (24.0-44.0) % Monocytes % (0.0-12.0) % Eosinophils % (0.00-5.0) % Basophils % (0.0-0.4) % Absolute Granulocytes (1.4-6.9) x10^3/uL Basophils # (0-0.4) x10^3/uL PT 10.6 (9.4-12.5) SECONDS INR 0.97 (0.8-3.0) Sodium (137-145) mmol/L Potassium (3.5-5.1) mmol/L Chloride (98-107) mmol/L Carbon Dioxide (22-30) mmol/L Anion Gap (5-15) MEQ/L BUN (9-20) mg/dL Creatinine (0.66-1.25) mg/dL Estimated GFR ML/MIN Glucose (74-106) mg/dL Lactic Acid (0.4-2.0) Calcium (8.4-10.2) mg/dL Total Bilirubin (0.2-1.3) mg/dL AST (17-59) U/L ALT (0-50) U/L Alkaline Phosphatase (38-126) U/L Troponin I < 0.012 (0.000-0.034) ng/mL Serum Total Protein (6.3-8.2) g/dL Albumin (3.5-5.0) g/dL Amylase (30-110) U/L Lipase (23-300) U/L Urine Color Yellow (Yellow) Urine Appearance Clear (Clear) Urine pH 8.0 (4.6-8.0) Ur Specific [place] 1.010 (1.005-1.030) Urine Protein Negative (Negative) Urine Glucose (UA) Negative (Negative) mg/dL Urine Ketones Negative (Negative) Urine Blood Trace (Negative) Urine Nitrite Negative (Negative) Urine Bilirubin Negative (Negative) Urine Urobilinogen 0.2 (0.2) mg/dL Ur Leukocyte Esterase Negative (Negative) U Hyaline Cast (Auto) NONE SEEN (0-2) /LPF Urine Microscopic RBC 6-10 A (0-5) /HPF Urine Microscopic WBC 0-2 (0-5) /HPF Ur Epithelial Cells None Seen (None Seen) /HPF Urine Bacteria None Seen (None Seen) /HPF Urine Culture Reflexed NO (NO) 07/04/23 Range/Units 13:00 WBC (4.0-10.5) x10^3/uL RBC (4.1-5.6) x10^6/uL Hgb (12.5-18.0) g/dL Hct (42-50) % MCV (78-100) fL MCH (26-32) pg MCHC (32-36) g/dL RDW (11.5-14.0) % Plt Count (150-450) x10^3/uL MPV (7.5-11.0) fL Gran % (36.0-66.0) % Immature Gran % (Auto) (0.00-0.4) % Nucleat RBC Rel Count (0.00-0.1) % Eos # (Auto) (0-0.5) x10^3/uL Immature Gran # (Auto) (0.00-0.03) x10^3u/L Absolute Lymphs (auto) (1.0-4.6) x10^3/uL Absolute Monos (auto) (0.0-1.3) x10^3/uL Absolute Nucleated RBC (0.00-0.01) x10^3u/L Lymphocytes % (24.0-44.0) % Monocytes % (0.0-12.0) % Eosinophils % (0.00-5.0) % Basophils % (0.0-0.4) % Absolute Granulocytes (1.4-6.9) x10^3/uL Basophils # (0-0.4) x10^3/uL PT (9.4-12.5) SECONDS INR (0.8-3.0) Sodium (137-145) mmol/L Potassium (3.5-5.1) mmol/L Chloride (98-107) mmol/L Carbon Dioxide (22-30) mmol/L Anion Gap (5-15) MEQ/L BUN (9-20) mg/dL Creatinine (0.66-1.25) mg/dL Estimated GFR ML/MIN Glucose (74-106) mg/dL Lactic Acid (0.4-2.0) Calcium (8.4-10.2) mg/dL Total Bilirubin (0.2-1.3) mg/dL AST (17-59) U/L ALT (0-50) U/L Alkaline Phosphatase (38-126) U/L Troponin I < 0.012 (0.000-0.034) ng/mL Serum Total Protein (6.3-8.2) g/dL Albumin (3.5-5.0) g/dL Amylase (30-110) U/L Lipase (23-300) U/L Urine Color (Yellow) Urine Appearance (Clear) Urine pH (4.6-8.0) Ur Specific [place] (1.005-1.030) Urine Protein (Negative) Urine Glucose (UA) (Negative) mg/dL Urine Ketones (Negative) Urine Blood (Negative) Urine Nitrite (Negative) Urine Bilirubin (Negative) Urine Urobilinogen (0.2) mg/dL Ur Leukocyte Esterase (Negative) U Hyaline Cast (Auto) (0-2) /LPF Urine Microscopic RBC (0-5) /HPF Urine Microscopic WBC (0-5) /HPF Ur Epithelial Cells (None Seen) /HPF Urine Bacteria (None Seen) /HPF Urine Culture Reflexed (NO) Microbiology 07/04/23 08:46 Blood Culture Gram Stain - Final Blood Not Reportable - Radiology Impressions Radiology Exams & Impressions: Radiology Procedures Category Date Time Status ABDOMEN AND PELVIS W CONTRAST [CT] Stat Exams 07/04/23 08:46 Completed CHEST 1 VIEW (PORTABLE) Stat Exams 07/04/23 08:46 Completed MRI ABD W/O CONTRAST [MRI] Routine Exams 07/04/23 13:41 Taken Assessment/Plan (1) Pancreatitis Current Visit: Yes Status: Acute Assessment & Plan: - MRCP Impression: Cholecystectomy. 4 mm distal choledochal stone. Remaining MRCP is negative - Call out to GI at [facility] for possible transfer today. - NPO - IV fluids - PRN IV pain medication - Amylase 358, Lipase 1232- trend - lipid panel in AM - No fever or chills, Biirubin <2, AST/ALT WNL Code(s): K85.90 - ACUTE PANCREATITIS WITHOUT NECROSIS OR INFECTION, UNSP (2) Abdominal pain Current Visit: Yes Status: Acute Assessment & Plan: - 2:2 pancreatitis - PRN IV narcotic pain medication - NPO Code(s): R10.9 - UNSPECIFIED ABDOMINAL PAIN (3) Hyponatremia Current Visit: Yes Status: Acute Assessment & Plan: - Na+ 135- mild Code(s): E87.1 - HYPO-OSMOLALITY AND HYPONATREMIA (4) Obesity (BMI 30.0-34.9) Current Visit: No Status: Acute Assessment & Plan: - Advised diet and exercise control VTE: [employer] Next of Kin: Mallory Hall [phone] D/c plan: 1-2 days Code(s): E66.9 - OBESITY, UNSPECIFIED
--- NOTE | 2023-07-04 14:35 | XRAY ---
Indication: Abdominal pain. Status post cholecystectomy and recent pancreatic stent removal. 5 mm distal choledochal stone seen on recent CT. Conventional MRCP performed. Comparison: None There has been cholecystectomy without abnormal free fluid or biloma. Biliary tree and common bile duct are normal in course and caliber. Distal common bile duct just proximal to ampulla demonstrates 4 mm choledochal stone, best seen image 10, series 5. No other choledochal stone or abnormal biliary distention. Pancreatic duct unremarkable. Visualized liver, spleen, pancreas, adrenal glands, kidneys, stomach, bowel loops, aorta, and IVC are unremarkable. No abnormal bone marrow signal. Impression: Cholecystectomy. 4 mm distal choledochal stone.. Remaining MRCP is negative.
[2023-07-04] MEDS ORDERED: Hydromorphone 1 mg/ml Injection IV PRN (14:36)
[2023-07-04] MEDS: Sodium Chloride 0.9% 1000 ML 1,000 ML IV SCH ×2 (15:04→21:44)
[2023-07-04] MEDS: Zofran 4 MG/2 ML VIAL IV PRN ×2 (15:37→21:43)
[2023-07-04] MEDS: ENOXAPARIN SODIUM SQ SCH (15:43)
[2023-07-04] MEDS: Hydromorphone 1 mg/ml Injection IV PRN ×2 (17:46→21:43)
[2023-07-05] MEDS: Hydromorphone 1 mg/ml Injection IV PRN ×6 (00:50→18:14)
[2023-07-05] MEDS: Sodium Chloride 0.9% 1000 ML 1,000 ML IV SCH ×3 (04:17→18:11)
[2023-07-05 05:45] LABS: ALBUMIN 3.6 g/dL (3.5-5.0); ANION GAP 11.9 MEQ/L (5-15); BILIRUBIN,TOTAL 1.1 mg/dL (0.2-1.3); Calcium 8.6 mg/dL (8.4-10.2); Creatinine 1 0.52 mg/dL (0.66-1.25); EST GLOMERULAR FILTRATION RATE 120.5 ML/MIN; Potassium 3.7 mmol/L (3.5-5.1); Risk Ratio 5.1; Total Protein 6.7 g/dL (6.3-8.2)
[2023-07-05] MEDS: Zofran 4 MG/2 ML VIAL IV PRN (08:01)
[2023-07-05] MEDS: ENOXAPARIN SODIUM SQ SCH (08:03)
[2023-07-05 08:12] LABS: Hematocrit 37.1 % (42-50); Hemoglobin 12.7 g/dL (12.5-18.0); Mean Cell Volume 94.4 fL (78-100); Mean Corpuscular Hemoglobin 32.3 pg (26-32); Mean Corpuscular Hgb Concent. 34.2 g/dL (32-36); Mean Platelet Volume 9.6 fL (7.5-11.0); Platelet Count 207 x10^3/uL (150-450); Red Blood Count 3.93 x10^6/uL (4.1-5.6); Red Cell Distribution Width 12.6 % (11.5-14.0)
--- NOTE | 2023-07-05 09:09 | PCM.NOTE ---
Date and Time: 07/05/2303 Subjective Assessment: 07/04/23 is a 53 year old male with PMHX of arthritis, gallbladder disease, pancreatitis, kidney stones. He presented to the ER with severe epigastric abdominal pain radiating through to the back. He underwent a cholecystectomy several weeks ago and had a complication of a common duct stone. He was referred for ERCP to to a Dr. Gill. He had a stent placed a month ago after ERCP the stent was removed last Tuesday he did well until Tuesday night when he developed severe pain nausea and vomiting. ER physician discussed the situation with Dr. Laurent at and he suggested simply admitting the patient here for pancreatic treatment he says he is most doubtful that there is an actual stone there but he has not seen the films. ER physician ordered and abd MRI w/o for further evaluation. Pt is in severe pain with even slight touch of abd. He continues to have N/V. Will continue IV fluids, Zofran, and dilaudid. 07/05/23 Pt resting in bed. Pain has improved. Lipase has decreased to 332. He has had no overnight N/V. Will start a clear liquid diet. Dr. Dennis discussed this pt's case with Dr. Gill at [facility] yesterday. He disagrees with radiologist after looking at the images. He says the patient does not have a common duct stone and likely has air in his common duct. He said that even if he did have a CDS, it would pass because he has had a sphincterotomy and has a wide common duct from the stent he had placed. He also says this is too late for ERCP related pancreatitis. He believes the patient has chronic pancreatitis based on the images and and believes he has a flare of pancreatitis. He advised us to treat him here with bowel rest, IV fluids and pain control. Will continue with this plan of care. Most likely d/c tomorrow if continues to improve. - Review of Systems Constitutional: No Fever, No Chills Eyes: No Symptoms Ears, Nose, & Throat: No Symptoms Respiratory: No Cough, No Short Of Breath Cardiac: No Chest Pain, No Edema, No Syncope Abdominal/Gastrointestinal: Abdominal Pain (RUQ with palpation), No Nausea, No Vomiting, No Diarrhea Genitourinary Symptoms: No Dysuria Musculoskeletal: No Back Pain, No Neck Pain Skin: No Rash Neurological: No Dizziness, No Focal Weakness, No Sensory Changes Psychological: No Symptoms Endocrine: No Symptoms Hematologic/Lymphatic: No Symptoms Immunological/Allergic: No Symptoms Objective Exam General Appearance: no apparent distress, alert Neurologic Exam: alert, oriented x 3, cooperative, normal mood/affect, nml cerebellar function, sensation nml, No motor deficits Skin Exam: normal color, warm, dry Eye Exam: PERRL, EOMI, eyes nml inspection Ears, Nose, Throat Exam: normal ENT inspection, pharynx normal, moist mucous membranes Neck Exam: normal inspection, non-tender, supple, full range of motion Respiratory Exam: normal breath sounds, lungs clear, No respiratory distress Cardiovascular Exam: regular rate/rhythm, normal heart sounds Gastrointestinal/Abdomen Exam: soft, tenderness (RUQ with palpation), No mass Extremity Exam: normal inspection, normal range of motion Back Exam: normal inspection, normal range of motion, No CVA tenderness, No vertebral tenderness Male Genitalia Exam: deferred Rectal Exam: deferred OBJECTIVE DATA Vital Signs: Vital Signs - 24 hr Temp Pulse Resp BP BP Pulse Ox 07/05/23 08:00 18 07/05/23 06:33 97.3 F 64 18 116/68 94 L 07/05/23 03:45 18 07/05/23 03:04 98.2 F 71 18 126/61 92 L 07/05/23 00:00 18 07/04/23 23:33 98.5 F 70 18 131/71 93 L 07/04/23 19:45 19 07/04/23 19:23 98.3 F 75 19 122/70 95 07/04/23 16:00 99.0 F 57 L 18 128/74 97 07/04/23 15:46 99 F 57 L 18 128/74 97 07/04/23 13:16 96 07/04/23 13:00 56 L 6 L 125/75 96 07/04/23 12:45 55 L 12 123/69 96 07/04/23 12:30 57 L 13 124/73 97 07/04/23 12:15 58 L 13 122/72 97 07/04/23 12:00 54 L 12 117/70 97 07/04/23 11:45 57 L 12 115/67 99 07/04/23 11:30 58 L 11 L 115/66 98 07/04/23 11:15 64 13 110/66 97 07/04/23 11:07 61 13 112/67 96 07/04/23 10:15 57 L 14 135/69 96 07/04/23 10:00 50 L 14 120/68 96 07/04/23 09:45 50 L 18 130/71 07/04/23 09:30 47 L 2 L 127/69 98 07/04/23 09:20 47 L 4 L 97 07/04/23 09:16 48 L 0 L Pain Assessment - Last Documented Pain Intensity 7 Pain Scale Used 0-10 Pain Scale Intake and Output: Intake & Output 07/02/23 07/03/23 07/04/23 07/05/23 11:59 11:59 11:59 11:59 Intake Total 1589 Balance 1589 Weight 113.398 kg 111.7 kg Lab Results: Lab Results-Last 24 Hours 07/04/23 07/04/23 07/04/23 Range/Units 09:10 09:15 09:15 WBC 14.5 H (4.0-10.5) x10^3/uL RBC 4.27 (4.1-5.6) x10^6/uL Hgb 13.5 (12.5-18.0) g/dL Hct 39.1 L (42-50) % MCV 91.6 (78-100) fL MCH 31.6 (26-32) pg MCHC 34.5 (32-36) g/dL RDW 12.5 (11.5-14.0) % Plt Count 256 (150-450) x10^3/uL MPV 9.6 (7.5-11.0) fL Gran % 77.3 H (36.0-66.0) % Immature Gran % (Auto) 0.4 (0.00-0.4) % Nucleat RBC Rel Count 0.0 (0.00-0.1) % Eos # (Auto) 0.17 (0-0.5) x10^3/uL Immature Gran # (Auto) 0.06 H (0.00-0.03) x10^3u/L Absolute Lymphs (auto) 2.10 (1.0-4.6) x10^3/uL Absolute Monos (auto) 0.90 (0.0-1.3) x10^3/uL Absolute Nucleated RBC 0.00 (0.00-0.01) x10^3u/L Lymphocytes % 14.5 L (24.0-44.0) % Monocytes % 6.2 (0.0-12.0) % Eosinophils % 1.2 (0.00-5.0) % Basophils % 0.4 (0.0-0.4) % Absolute Granulocytes 11.17 H (1.4-6.9) x10^3/uL Basophils # 0.06 (0-0.4) x10^3/uL PT (9.4-12.5) SECONDS INR (0.8-3.0) Sodium 135 L (137-145) mmol/L Potassium 3.9 (3.5-5.1) mmol/L Chloride 104 (98-107) mmol/L Carbon Dioxide 21 L (22-30) mmol/L Anion Gap 13.7 (5-15) MEQ/L BUN 10 (9-20) mg/dL Creatinine 0.68 (0.66-1.25) mg/dL Estimated GFR 111.2 ML/MIN Glucose 119 H (74-106) mg/dL Lactic Acid 1.4 (0.4-2.0) Calcium 9.7 (8.4-10.2) mg/dL Total Bilirubin 0.80 (0.2-1.3) mg/dL AST 26 (17-59) U/L ALT 27 (0-50) U/L Alkaline Phosphatase 143 H (38-126) U/L Troponin I (0.000-0.034) ng/mL Serum Total Protein 8.0 (6.3-8.2) g/dL Albumin 4.4 (3.5-5.0) g/dL Triglycerides (30-150) mg/dL Cholesterol (50-200) mg/dL LDL Cholesterol (30-100) mg/dL HDL Cholesterol (40-60) mg/dL Heart Disease Risk Ratio Amylase 358 H (30-110) U/L Lipase 1232 H (23-300) U/L Urine Color (Yellow) Urine Appearance (Clear) Urine pH (4.6-8.0) Ur Specific [place] (1.005-1.030) Urine Protein (Negative) Urine Glucose (UA) (Negative) mg/dL Urine Ketones (Negative) Urine Blood (Negative) Urine Nitrite (Negative) Urine Bilirubin (Negative) Urine Urobilinogen (0.2) mg/dL Ur Leukocyte Esterase (Negative) U Hyaline Cast (Auto) (0-2) /LPF Urine Microscopic RBC (0-5) /HPF Urine Microscopic WBC (0-5) /HPF Ur Epithelial Cells (None Seen) /HPF Urine Bacteria (None Seen) /HPF Urine Culture Reflexed (NO) 07/04/23 07/04/23 07/04/23 Range/Units 09:15 09:15 10:48 WBC (4.0-10.5) x10^3/uL RBC (4.1-5.6) x10^6/uL Hgb (12.5-18.0) g/dL Hct (42-50) % MCV (78-100) fL MCH (26-32) pg MCHC (32-36) g/dL RDW (11.5-14.0) % Plt Count (150-450) x10^3/uL MPV (7.5-11.0) fL Gran % (36.0-66.0) % Immature Gran % (Auto) (0.00-0.4) % Nucleat RBC Rel Count (0.00-0.1) % Eos # (Auto) (0-0.5) x10^3/uL Immature Gran # (Auto) (0.00-0.03) x10^3u/L Absolute Lymphs (auto) (1.0-4.6) x10^3/uL Absolute Monos (auto) (0.0-1.3) x10^3/uL Absolute Nucleated RBC (0.00-0.01) x10^3u/L Lymphocytes % (24.0-44.0) % Monocytes % (0.0-12.0) % Eosinophils % (0.00-5.0) % Basophils % (0.0-0.4) % Absolute Granulocytes (1.4-6.9) x10^3/uL Basophils # (0-0.4) x10^3/uL PT 10.6 (9.4-12.5) SECONDS INR 0.97 (0.8-3.0) Sodium (137-145) mmol/L Potassium (3.5-5.1) mmol/L Chloride (98-107) mmol/L Carbon Dioxide (22-30) mmol/L Anion Gap (5-15) MEQ/L BUN (9-20) mg/dL Creatinine (0.66-1.25) mg/dL Estimated GFR ML/MIN Glucose (74-106) mg/dL Lactic Acid (0.4-2.0) Calcium (8.4-10.2) mg/dL Total Bilirubin (0.2-1.3) mg/dL AST (17-59) U/L ALT (0-50) U/L Alkaline Phosphatase (38-126) U/L Troponin I < 0.012 (0.000-0.034) ng/mL Serum Total Protein (6.3-8.2) g/dL Albumin (3.5-5.0) g/dL Triglycerides (30-150) mg/dL Cholesterol (50-200) mg/dL LDL Cholesterol (30-100) mg/dL HDL Cholesterol (40-60) mg/dL Heart Disease Risk Ratio Amylase (30-110) U/L Lipase (23-300) U/L Urine Color Yellow (Yellow) Urine Appearance Clear (Clear) Urine pH 8.0 (4.6-8.0) Ur Specific [place] 1.010 (1.005-1.030) Urine Protein Negative (Negative) Urine Glucose (UA) Negative (Negative) mg/dL Urine Ketones Negative (Negative) Urine Blood Trace (Negative) Urine Nitrite Negative (Negative) Urine Bilirubin Negative (Negative) Urine Urobilinogen 0.2 (0.2) mg/dL Ur Leukocyte Esterase Negative (Negative) U Hyaline Cast (Auto) NONE SEEN (0-2) /LPF Urine Microscopic RBC 6-10 A (0-5) /HPF Urine Microscopic WBC 0-2 (0-5) /HPF Ur Epithelial Cells None Seen (None Seen) /HPF Urine Bacteria None Seen (None Seen) /HPF Urine Culture Reflexed NO (NO) 07/04/23 07/04/23 07/05/23 Range/Units 13:00 17:05 04:52 WBC 13.0 H (4.0-10.5) x10^3/uL RBC 3.93 L (4.1-5.6) x10^6/uL Hgb 12.7 (12.5-18.0) g/dL Hct 37.1 L (42-50) % MCV 94.4 (78-100) fL MCH 32.3 H (26-32) pg MCHC 34.2 (32-36) g/dL RDW 12.6 (11.5-14.0) % Plt Count 207 (150-450) x10^3/uL MPV 9.6 (7.5-11.0) fL Gran % (36.0-66.0) % Immature Gran % (Auto) (0.00-0.4) % Nucleat RBC Rel Count (0.00-0.1) % Eos # (Auto) (0-0.5) x10^3/uL Immature Gran # (Auto) (0.00-0.03) x10^3u/L Absolute Lymphs (auto) (1.0-4.6) x10^3/uL Absolute Monos (auto) (0.0-1.3) x10^3/uL Absolute Nucleated RBC (0.00-0.01) x10^3u/L Lymphocytes % (24.0-44.0) % Monocytes % (0.0-12.0) % Eosinophils % (0.00-5.0) % Basophils % (0.0-0.4) % Absolute Granulocytes (1.4-6.9) x10^3/uL Basophils # (0-0.4) x10^3/uL PT (9.4-12.5) SECONDS INR (0.8-3.0) Sodium (137-145) mmol/L Potassium (3.5-5.1) mmol/L Chloride (98-107) mmol/L Carbon Dioxide (22-30) mmol/L Anion Gap (5-15) MEQ/L BUN (9-20) mg/dL Creatinine (0.66-1.25) mg/dL Estimated GFR ML/MIN Glucose (74-106) mg/dL Lactic Acid (0.4-2.0) Calcium (8.4-10.2) mg/dL Total Bilirubin (0.2-1.3) mg/dL AST (17-59) U/L ALT (0-50) U/L Alkaline Phosphatase (38-126) U/L Troponin I < 0.012 < 0.012 (0.000-0.034) ng/mL Serum Total Protein (6.3-8.2) g/dL Albumin (3.5-5.0) g/dL Triglycerides (30-150) mg/dL Cholesterol (50-200) mg/dL LDL Cholesterol (30-100) mg/dL HDL Cholesterol (40-60) mg/dL Heart Disease Risk Ratio Amylase (30-110) U/L Lipase (23-300) U/L Urine Color (Yellow) Urine Appearance (Clear) Urine pH (4.6-8.0) Ur Specific [place] (1.005-1.030) Urine Protein (Negative) Urine Glucose (UA) (Negative) mg/dL Urine Ketones (Negative) Urine Blood (Negative) Urine Nitrite (Negative) Urine Bilirubin (Negative) Urine Urobilinogen (0.2) mg/dL Ur Leukocyte Esterase (Negative) U Hyaline Cast (Auto) (0-2) /LPF Urine Microscopic RBC (0-5) /HPF Urine Microscopic WBC (0-5) /HPF Ur Epithelial Cells (None Seen) /HPF Urine Bacteria (None Seen) /HPF Urine Culture Reflexed (NO) 07/05/23 Range/Units 04:52 WBC (4.0-10.5) x10^3/uL RBC (4.1-5.6) x10^6/uL Hgb (12.5-18.0) g/dL Hct (42-50) % MCV (78-100) fL MCH (26-32) pg MCHC (32-36) g/dL RDW (11.5-14.0) % Plt Count (150-450) x10^3/uL MPV (7.5-11.0) fL Gran % (36.0-66.0) % Immature Gran % (Auto) (0.00-0.4) % Nucleat RBC Rel Count (0.00-0.1) % Eos # (Auto) (0-0.5) x10^3/uL Immature Gran # (Auto) (0.00-0.03) x10^3u/L Absolute Lymphs (auto) (1.0-4.6) x10^3/uL Absolute Monos (auto) (0.0-1.3) x10^3/uL Absolute Nucleated RBC (0.00-0.01) x10^3u/L Lymphocytes % (24.0-44.0) % Monocytes % (0.0-12.0) % Eosinophils % (0.00-5.0) % Basophils % (0.0-0.4) % Absolute Granulocytes (1.4-6.9) x10^3/uL Basophils # (0-0.4) x10^3/uL PT (9.4-12.5) SECONDS INR (0.8-3.0) Sodium 131 L (137-145) mmol/L Potassium 3.7 (3.5-5.1) mmol/L Chloride 104 (98-107) mmol/L Carbon Dioxide 19 L (22-30) mmol/L Anion Gap 11.9 (5-15) MEQ/L BUN 9 (9-20) mg/dL Creatinine 0.52 L (0.66-1.25) mg/dL Estimated GFR 120.5 ML/MIN Glucose 115 H (74-106) mg/dL Lactic Acid (0.4-2.0) Calcium 8.6 (8.4-10.2) mg/dL Total Bilirubin 1.10 (0.2-1.3) mg/dL AST 24 (17-59) U/L ALT 21 (0-50) U/L Alkaline Phosphatase 113 (38-126) U/L Troponin I (0.000-0.034) ng/mL Serum Total Protein 6.7 (6.3-8.2) g/dL Albumin 3.6 (3.5-5.0) g/dL Triglycerides 89 (30-150) mg/dL Cholesterol 165 (50-200) mg/dL LDL Cholesterol 117 H (30-100) mg/dL HDL Cholesterol 32 L (40-60) mg/dL Heart Disease Risk Ratio 5.1 Amylase (30-110) U/L Lipase 332 H (23-300) U/L Urine Color (Yellow) Urine Appearance (Clear) Urine pH (4.6-8.0) Ur Specific [place] (1.005-1.030) Urine Protein (Negative) Urine Glucose (UA) (Negative) mg/dL Urine Ketones (Negative) Urine Blood (Negative) Urine Nitrite (Negative) Urine Bilirubin (Negative) Urine Urobilinogen (0.2) mg/dL Ur Leukocyte Esterase (Negative) U Hyaline Cast (Auto) (0-2) /LPF Urine Microscopic RBC (0-5) /HPF Urine Microscopic WBC (0-5) /HPF Ur Epithelial Cells (None Seen) /HPF Urine Bacteria (None Seen) /HPF Urine Culture Reflexed (NO) Radiology Exams: Radiology Procedures Category Date Time Status ABDOMEN AND PELVIS W CONTRAST [CT] Stat Exams 07/04/23 08:46 Completed CHEST 1 VIEW (PORTABLE) Stat Exams 07/04/23 08:46 Completed MRI ABD W/O CONTRAST [MRI] Routine Exams 07/04/23 13:41 Completed Assessment/Plan (1) Pancreatitis Current Visit: Yes Status: Acute Assessment & Plan: - MRCP Impression: Cholecystectomy. 4 mm distal choledochal stone. Remaining MRCP is negative - Call out to GI at [facility] for possible transfer today. - NPO - IV fluids - PRN IV pain medication - Amylase 358, Lipase 1232- trend - lipid panel in AM - No fever or chills, Biirubin <2, AST/ALT WNL 07/05 - Lipase 332 - pain improved - Per GI at [facility] ok to stay at this facility - continue IV fluids, pain meds - Clear liquid diet - No overnight N/V/D. Code(s): K85.90 - ACUTE PANCREATITIS WITHOUT NECROSIS OR INFECTION, UNSP (2) Abdominal pain Current Visit: Yes Status: Acute Assessment & Plan: - 2:2 pancreatitis - PRN IV narcotic pain medication - NPO 07/05 - improved - clear liquid diet Code(s): R10.9 - UNSPECIFIED ABDOMINAL PAIN (3) Hyponatremia Current Visit: Yes Status: Acute Assessment & Plan: - 07/04:Na+ 135- mild - 07/05: Na+ 131- mild- trend - IV fluids, clear liquid diet Code(s): E87.1 - HYPO-OSMOLALITY AND HYPONATREMIA (4) Obesity (BMI 30.0-34.9) Current Visit: No Status: Acute Assessment & Plan: - Advised diet and exercise control Code(s): E66.9 - OBESITY, UNSPECIFIED (5) Metabolic acidosis Current Visit: Yes Status: Acute Assessment & Plan: - 2:2 N/V from pancreatitis. - Bicarb 19- trend VTE: [employer] Next of Kin: Mallory Hall [phone] D/c plan: tomorrow? Code(s): E87.20 - ACIDOSIS, UNSPECIFIED
--- NOTE | 2023-07-05 09:30 | CONS ---
CONSULT DATE: 07/04/2023 HISTORY: The patient is a 53-year-old gentleman who came in with some nausea, vomiting and epigastric pain. He had prior cholecystectomy in the past and tolerated the well and then developed choledocholithiasis that presented on ERCP at . They placed a stent. ERCP had some minor bleeding that it sounded like. He had some nausea and vomiting and a little bit of loose stools. He has some pancreatitis now. He was afebrile here earlier. Blood pressure 148/83, pulse 55. INR 0.97. White count 14.5, hemoglobin 13.5, hematocrit 39.1, PLT 256,000. He does have elevated amylase at 358. He had significantly elevated lipase 1232, alkaline phosphatase just a little bit elevated at 143, bilirubin normal at 0.80. AST 26 and ALT 27. The patient was in the MRI chamber. He was pulled back so I could feel his abdomen. His abdomen was soft. He had some tenderness in the epigastrium. He has been having epigastric pain. Otherwise, he is hemodynamically stable. CT scan was personally read by myself. There is a density that the radiologist questioned if it was choledocholithiasis. I do not have the patient's ERCP reports whether any clips or intervention was done at the time of the ERCP or sphincterotomy in the past. His bilirubin is not elevated but he definitely has pancreatitis. They are going to push the film through the cloud so Dr. Gill could review them. Otherwise, an MRCP was ordered at this time. The gallbladder fossa looks okay. No signs of any collection on my review of the films. PAST MEDICAL HISTORY: Arthritis, gallbladder disease, pancreatitis, kidney stones. PAST SURGICAL HISTORY: Cholecystectomy. ERCP. Knee surgery. HOME MEDICATIONS: Multivitamin, hydrocodone/acetaminophen. ALLERGIES: NKDA. FAMILY HISTORY: Negative in regards to this problem. SOCIAL HISTORY: No smoking or alcohol abuse. REVIEW OF SYSTEMS: Fourteen systems reviewed. Pertinent for the epigastric upper abdominal aches and pains, nausea and vomiting. PHYSICAL EXAMINATION: GENERAL: No acute distress. HEENT: Sclera nonicteric. EOMI. Oral mucous membranes moist. NECK: No JVD. CHEST: Equal excursion, nonlabored breathing. CVS: Regular rate and rhythm. ABDOMEN: Soft, some epigastric tenderness. No peritoneal signs. EXTREMITIES: No cyanosis. NEURO: Alert. PSYCH: Appropriate mood and affect. SKIN: Dry. IMPRESSION: Epigastric pain, nausea and vomiting. He definitely has acute pancreatitis. CT scan showed a density that the radiologist questions if the common bile duct. Dr. Cole said he is pushing the films so Dr. Gill could review. Otherwise, Dr. Gill recommended MRCP. If he truly has a stone causing that is causing the issue, he might need transferred back up for another ERCP. Otherwise, he does not appear to need any acute surgical intervention. He needs bowel rest, IV hydration regarding his acute pancreatitis. Again, there is no role of surgery for the pancreatitis here. If he fails to improve, he might need transferred to . The patient was seen and evaluated. I personally reviewed the CT films.
[2023-07-05] MEDS: TYLENOL 325 MG PO PRN (15:59)
[2023-07-05] MEDS: NORCO 10-325 MG PO PRN (21:50)
[2023-07-06] MEDS: TYLENOL 325 MG PO PRN (00:36)
[2023-07-06] MEDS: Sodium Chloride 0.9% 1000 ML 1,000 ML IV SCH (01:01)
[2023-07-06] MEDS: NORCO 10-325 MG PO PRN ×2 (02:01→08:15)
[2023-07-06] MEDS ORDERED: NORCO 10-325 MG PO ONE (04:55)
[2023-07-06 05:26] VITALS: O2SAT 99
[2023-07-06 05:27] LABS: Hematocrit 38.3 % (42-50); Hemoglobin 12.7 g/dL (12.5-18.0); Mean Cell Volume 94.8 fL (78-100); Mean Corpuscular Hemoglobin 31.4 pg (26-32); Mean Corpuscular Hgb Concent. 33.2 g/dL (32-36); Platelet Count 220 x10^3/uL (150-450); Red Blood Count 4.04 x10^6/uL (4.1-5.6); Red Cell Distribution Width 12.4 % (11.5-14.0); White Blood Count 10.1 x10^3/uL (4.0-10.5)
[2023-07-06 06:02] LABS: ANION GAP 12.9 MEQ/L (5-15); BILIRUBIN,TOTAL 0.8 mg/dL (0.2-1.3); Calcium 9.2 mg/dL (8.4-10.2); Creatinine 1 0.61 mg/dL (0.66-1.25); EST GLOMERULAR FILTRATION RATE 114.9 ML/MIN; Potassium 4.1 mmol/L (3.5-5.1); Total Protein 7.4 g/dL (6.3-8.2)
[2023-07-06 08:01] VITALS: BP 130/78; PULSE 56; RESP 17; TEMP 96.7
--- NOTE | 2023-07-06 11:09 | PCM.DS ---
Discharge Summary Date of Admission: 07/04/23 14:40 Date of Discharge: 07/06/23 Admitting Physician: CLAUDINE WEBB MD Primary Care Provider: LORY LEE MD Allergies Allergies No Known Drug Allergies Allergy (Verified 07/04/23 08:40) Hospital Summary - Hospital Course Hospital Course: 07/04/23 is a 53 year old male with PMHX of arthritis, gallbladder disease, pancreatitis, kidney stones. He presented to the ER with severe epigastric abd ominal pain radiating through to the back. He underwent a cholecystectomy several weeks ago and had a complication of a common duct stone. He was referred for ERCP to to a Dr. Gill. He had a stent placed a month ago after ERCP the stent was removed last Tuesday he did well until Tuesday night when he developed severe pain nausea and vomiting. ER physician discussed the situation with Dr. Laurent at and he suggested simply admitting the patient here for pancreatic treatment he says he is most doubtful that there is an actual stone there but he has not seen the films. ER physician ordered and abd MRI w/o for further evaluation. Pt is in severe pain with even slight touch of abd. He cont inues to have N/V. Will continue IV fluids, Zofran, and dilaudid. 07/05/23 Pt resting in bed. Pain has improved. Lipase has decreased to 332. He has had no overnight N/V. Will start a clear liquid diet. Dr. Dennis discussed this pt's case with Dr. Gill at [facility] yesterday. He disagrees with radiologist after looking at the images. He says the patient does not have a common duct stone and likely has air in his common duct. He said that even if he did have a CDS, it would pass because he has had a sphincterotomy and has a wide common duct from the stent he had placed. He also says this is too late for ERCP related pancreatitis. He believes the patient has chronic pancreatitis based on the images and and believes he has a flare of pancreatitis. He advised us to treat him here with bowel rest, IV fluids and pain control. Will continue with this plan of care. Most likely d/c tomorrow if continues to improve. 07/06/23 Pt sitting up in bed. He no longer has abd. pain, N/V. He would like to go home today. He was able to tolerate a regular diet without pain. Education provided on prevention of pancreatic flares and diet. Advised to also avoid alcohol. Will continue protonix Op to reduce gastric secretions. He denies any further concerns at this time. - Vitals & Intake/Output Vital Signs: Vital Signs Temperature 96.7 F 07/06/23 07:59 Pulse Rate 56 L 07/06/23 07:59 Respiratory Rate 17 07/06/23 07:59 Blood Pressure 130/78 07/06/23 07:59 O2 Sat by Pulse Oximetry 99 07/06/23 07:59 Intake & Output: Intake & Output 07/03/23 07/04/23 07/05/23 07/06/23 11:59 11:59 11:59 11:59 Intake Total 1589 5460 Output Total 775 Balance 814 5460 Weight 113.398 kg 111.7 kg - Lab Result Diagrams: 07/06/23 04:31 07/06/23 04:31 Lab Results-Last 24 Hrs: Lab Results-Last 24 Hours 07/06/23 07/06/23 07/06/23 Range/Units 04:30 04:31 04:31 WBC 10.1 (4.0-10.5) x10^3/uL RBC 4.04 L (4.1-5.6) x10^6/uL Hgb 12.7 (12.5-18.0) g/dL Hct 38.3 L (42-50) % MCV 94.8 (78-100) fL MCH 31.4 (26-32) pg MCHC 33.2 (32-36) g/dL RDW 12.4 (11.5-14.0) % Plt Count 220 (150-450) x10^3/uL MPV 10.0 (7.5-11.0) fL Sodium 137 (137-145) mmol/L Potassium 4.1 (3.5-5.1) mmol/L Chloride 105 (98-107) mmol/L Carbon Dioxide 23 (22-30) mmol/L Anion Gap 12.9 (5-15) MEQ/L BUN 6 L (9-20) mg/dL Creatinine 0.61 L (0.66-1.25) mg/dL Estimated GFR 114.9 ML/MIN Glucose 105 (74-106) mg/dL Calcium 9.2 (8.4-10.2) mg/dL Total Bilirubin 0.80 (0.2-1.3) mg/dL AST 23 (17-59) U/L ALT 20 (0-50) U/L Alkaline Phosphatase 135 H (38-126) U/L Serum Total Protein 7.4 (6.3-8.2) g/dL Albumin 4.0 (3.5-5.0) g/dL Lipase 547 H (23-300) U/L Micro Results-Entire Visit: Microbiology 07/05/23 04:52 Blood Culture - Preliminary Blood 07/04/23 09:20 Blood Culture - Preliminary Blood - Radiology Exams Ordered Rad Exams-Entire Visit: Radiology Procedures Category Date Time Status MRI ABD W/O CONTRAST [MRI] Routine Exams 07/04/23 13:41 Completed Discharge Exam General Appearance: no apparent distress, alert Neurologic Exam: alert, oriented x 3, cooperative, normal mood/affect, nml cerebellar function, sensation nml, No motor deficits Eye Exam: PERRL, EOMI, eyes nml inspection Ears, Nose, Throat Exam: normal ENT inspection, pharynx normal, moist mucous membranes Neck Exam: normal inspection, non-tender, supple, full range of motion Respiratory Exam: normal breath sounds, lungs clear, No respiratory distress Cardiovascular Exam: regular rate/rhythm, normal heart sounds Gastrointestinal/Abdomen Exam: soft, No tenderness, No mass Male Genitalia Exam: deferred Rectal Exam: deferred Back Exam: normal inspection, normal range of motion, No CVA tenderness, No vertebral tenderness Extremity Exam: normal inspection, normal range of motion Skin Exam: normal color, warm, dry Final Diagnosis/Problem List - Final Discharge Diagnosis/Problem (1) Pancreatitis Current Visit: Yes Status: Acute Code(s): K85.90 - ACUTE PANCREATITIS WITHOUT NECROSIS OR INFECTION, UNSP (2) Abdominal pain Current Visit: Yes Status: Acute Code(s): R10.9 - UNSPECIFIED ABDOMINAL PAIN (3) Hyponatremia Current Visit: Yes Status: Acute Code(s): E87.1 - HYPO-OSMOLALITY AND HYPONATREMIA (4) Obesity (BMI 30.0-34.9) Current Visit: No Status: Acute Code(s): E66.9 - OBESITY, UNSPECIFIED (5) Metabolic acidosis Current Visit: Yes Status: Acute Assessment & Plan: (1) Pancreatitis Current Visit: Yes Status: Acute Assessment & Plan: - MRCP Impression: Cholecystectomy. 4 mm distal choledochal stone. Remaining MRCP is negative - Call out to GI at [facility] for possible transfer today. - NPO - IV fluids - PRN IV pain medication - Amylase 358, Lipase 1232- trend - lipid panel in AM - No fever or chills, Biirubin <2, AST/ALT WNL 07/05 - Lipase 332 - pain improved - Per GI at [facility] ok to stay at this facility - continue IV fluids, pain meds - Clear liquid diet - No overnight N/V/D. 07/06 - tolerated regular diet - no abd pain - education on diet provided Code(s): K85.90 - ACUTE PANCREATITIS WITHOUT NECROSIS OR INFECTION, UNSP (2) Abdominal pain Current Visit: Yes Status: Acute Assessment & Plan: - 2:2 pancreatitis - PRN IV narcotic pain medication - NPO 07/05 - improved - clear liquid diet 07/06 - resolved Code(s): R10.9 - UNSPECIFIED ABDOMINAL PAIN (3) Hyponatremia Current Visit: Yes Status: Acute Assessment & Plan: 07/04:Na+ 135- mild 07/05: Na+ 131- mild- trend - IV fluids, clear liquid diet 07/06 - resolved Code(s): E87.1 - HYPO-OSMOLALITY AND HYPONATREMIA (4) Obesity (BMI 30.0-34.9) Current Visit: No Status: Acute Assessment & Plan: - Advised diet and exercise control Code(s): E66.9 - OBESITY, UNSPECIFIED (5) Metabolic acidosis Current Visit: Yes Status: Acute Assessment & Plan: - 2:2 N/V from pancreatitis. - Bicarb 19- trend 07/06 - resolved Code(s): E87.20 - ACIDOSIS, UNSPECIFIED - Discharge Discharge Date: 07/06/23 Disposition: Home, Self-Care Condition: Stable Prescriptions: Continue Multivitamin [Multi-Vitamin Daily] 1 tab PO DAILY Hydrocodone/Acetaminophen [Hydrocodone-Acetamin 10-325 mg] 1 tablet PO QID Follow up with: LORY LEE MD [Primary Care Provider] - 07/15/23 2:40 pm Forms: Work/School Release Form
[2023-07-06] MEDS: ENOXAPARIN SODIUM SQ SCH (11:35)
== END 2023-07-06 11:33 | disposition home or self-care (01) ==
LOC: ED 08:37 → MED SURG 14:40
PROVIDERS: ADMIT Internal Medicine; ATTEND Internal Medicine
DX: K85.90 Acute pancreatitis without necrosis or infection, unspecified (principal); R10.9 Unspecified abdominal pain; E87.1 Hypo-osmolality and hyponatremia; E66.9 Obesity, unspecified; E87.20 Acidosis, unspecified; Z79.899 Other long term (current) drug therapy; Z20.828 Contact with and (suspected) exposure to other viral communicable diseases
CPT/HCPCS: 36000; 36415; 71045; 74177; 74181; 80053; 80061; 81001; 82150; 83605; 83690; 83721; 84484; 85025; 85027; 85610; 87040; 93005; 96360; 96374; 96375; 96376; 99285; Q3014; G0378; J1170; J1650; J2405; A9270-GY